=== PATIENT | female | born 1940 | race Caucasian/White ===

== ENCOUNTER 2023-08-12 09:14 | Outpatient (REF) | payer MEDICARE, SELFPAY ==
--- NOTE | ~2023-08-12 | MR_ITS ---
EXAMINATION: MR VENOGRAM HEAD WITHOUT AND WITH CONTRAST CLINICAL INFORMATION: Cerebral venous thrombosis. COMPARISON: No relevant prior imaging. TECHNIQUE: And MR venogram of the brain was performed without and with contrast including time resolved imaging. A total of 10 mL Gadavist was utilized for this examination. 3D images were processed on an independent workstation under concurrent supervision. Arterial stenoses are measured in accordance with NASCET criteria or similar method if applicable. FINDINGS: Internal cerebral veins, vein of Caleb, and straight sinus are patent. Appears sagittal sinus and torcula are patent. Transverse sinuses, sigmoid sinuses, and the visualized upper internal jugular veins are patent. No evidence of dural venous sinus thrombosis. Postcontrast images of the whole brain reveal no abnormal intracranial mass or enhancement. There is no intracranial mass effect or hydrocephalus. MR/MR venography head wo/w con IMPRESSION: Normal MR venogram of the head.
[2023-08-12] MEDS: gadobutroL 10 ML VIAL IVPUSH (10:24)
== END 2023-08-12 09:15 | disposition home or self-care (01) ==
LOC: HO.MRI 09:14
PROVIDERS: PCP Family Medicine; Visit Provider Psychiatry & Neurology Neurology
DX: I63.9 Cerebral infarction, unspecified (principal); G08 Intracranial and intraspinal phlebitis and thrombophlebitis
CPT/HCPCS: 70546; A9585

== ENCOUNTER 2023-12-10 14:01 | Outpatient (AMB) | payer MEDICARE, SELFPAY ==
--- NOTE | 2023-12-10 14:43 | A.OFFVIS_ITS ---
Vital Signs 12/10/23 14:46 Height 5 ft 3 in Weight 143 lb 6 oz BMI 25.4 BP 134/70 Blood Pressure Location Lt brachial Position Sitting Pulse 59 Pulse Source Pulse Oximeter Pulse Oximetry (%) 96 Oxygen Delivery Method Room Air Intake Visit Reasons: chronic cough Roll Out Manager Required: No Allergies No Known Allergies Allergy (Verified 12/10/23 14:43) HPI Comments Details: The patient is here for pulmonary evaluation. The patient is an 83 year woman with known history of high blood pressure presenting with a persistent nonproductive cough. The cough is moderate severity. It is not related to any particular time of the day. It is also not related to eating or any activity. Sometimes has the coughing spells that are moderate severity. She has a hard time stopping. Does not bring up any significant amount of phlegm. At times she may be bring up some clear mucus. Denies any blood. The patient did have a evaluation done and she was initially taken off her NOMAN inhibitor as she was on lisinopril. Subsequently after that she was given a fluticasone nasal spray which did not see any significant improvement. She also use antihistamines thinking that it was potentially allergy related. She came off the NOMAN- inhibitor and placed on an ARB. Although she has not seen any significant change in her cough. Also she has noticed that the ARB is not helping with the blood pressure as well as NOMAN inhibitor. She would like to potentially go back to the lisinopril if possible. As far as exposures she denies any fumes or toxins. She does not have any pets in the house. She has not been exposed to any visible mold. in her exam the patient does have some inflammation of the n alla turbinates suggesting of some degree of upper airway cough syndrome. As far as imaging studies I did review previous imaging studies she did have a [facility] a CT scan of the abdomen. It appeared that she had a small pleural- based pulmonary nodule measuring 6 mm in size back in 09/02/2023. It will be reasonable to further evaluate this. the patient will try benzonatate for cough relief. She will continue with the current therapy that she is receiving at this time and will have blood work including allergy testing. When she returns will talk about additional imaging studies as she may benefit from a CT scan of the chest to further address the pulmonary nodule And slight area of ground- glass opacity. [facility] Medical History (Updated 12/12/23 @ 22:15 by Huang Patel MD) Pulmonary nodule Chronic rhinitis Upper airway cough syndrome Allergies Chronic cough Social History (Updated 12/10/23 @ 14:46 by SANDI Pelaez) Patient Tobacco Use Status: Never used Tobacco Review of Systems Const Denies fever(s) Eyes Reports as per HPI ENT Reports no additional complaints, Reports nasal congestion and Reports nasal discharge Card Denies chest pain Resp Denies change in phlegm color, Denies chest congestion, Reports cough and Denies wheezing GI Reports no additional complaints Musc Reports no additional complaints Skin/Breast Denies rash Darin/Lymph Reports no additional complaints Aller/Immun Denies wheezing Physical Exam Vital Signs: Last Vital Signs Pulse 59 12/10/23 14:46 BP 134/70 12/10/23 14:46 Pulse Ox 96 12/10/23 14:46 Oxygen Delivery Method Room Air 12/10/23 14:46 BMI result Body Mass Index 25.4 Const General: comfortable HEENT General nose exam: Abnormal mucous membranes and turbinates present boggy and erythematous Neck Neck: Yes supple Chest Chest palpation & inspection: normal inspection of the chest Resp Effort & Inspection: normal respiratory effort Auscultation: clear to auscultation bilaterally Cardio Heart sounds: S1 normal heart sound present and S2 normal heart sound present Skin General skin exam: no rashes or lesions noted Extrem General: Yes no clubbing, cyanosis or edema Assessment & Plan Assessment & Plan (1) Chronic cough: Code(s): R05.3 - Chronic cough Category: Medical (2) Allergies: Code(s): T78.40XA - Allergy, unspecified, initial encounter Category: Medical Qualifiers: Encounter type: initial encounter Qualified Code(s): T78.40XA - Allergy, unspecified, initial encounter (3) Upper airway cough syndrome: Code(s): R05.8 - Other specified cough Category: Medical (4) Chronic rhinitis: Code(s): J31.0 - Chronic rhinitis Category: Medical (5) Pulmonary nodule: Code(s): R91.1 - Solitary pulmonary nodule Category: Medical Plan continue Fluticasone nasal spray nasal rinsing Anti histamine therapy as needed Bloodwork/allergy testing start benzonates as needed The patient would like to restart the NOMAN inhibitor for her BP because it worked better for her. Therefore, we will investigate further her cough and see if she can trial the NOMAN inhibitor again in the near future F/U 2 months Orders: Orders Complete Blood Count Auto Diff 12/10/23 R05.3 - Chronic cough Erythrocyte Sedimentation Rate 12/10/23 R05.3 - Chronic cough XR chest 2V 12/10/23 R05.3 - Chronic cough Immunoglobulin E 12/10/23 R05.3 - Chronic cough Resp Allergy Profile Region I 12/10/23 R05.3 - Chronic cough, R91.1 - Solitary pulmonary nodule, T78.40XA - Allergy, unspecified, initial encounter Medications: New benzonatate 200 mg PO BID 30 days PRN 60 caps 6RF cough Coding Level of Care Code New Pt Level 4 (10560) Diagnoses Chronic cough R05.3 Allergy, initial encounter T78.40XA Encounter type: initial encounter Upper airway cough syndrome R05.8 Chronic rhinitis J31.0 Pulmonary nodule R91.1 Time Spent (min) 35
[2023-12-10 14:46] VITALS: BP 134/70; PULSE 59; O2SAT 96; BMI 25.4
== END 2023-12-10 15:19 | disposition home or self-care (01) ==
PROVIDERS: PCP Family Medicine; Referring Provider Family Medicine; Visit Provider Hospitalist
DX: R05.3 Chronic cough (principal); T78.40XA Allergy, unspecified, initial encounter; R05.8 Other specified cough; J31.0 Chronic rhinitis; R91.1 Solitary pulmonary nodule
CPT/HCPCS: 99204

== ENCOUNTER 2023-12-10 14:01 | Outpatient (REF) | payer MEDICARE, SELFPAY ==
--- NOTE | ~2023-12-10 | XR_ITS ---
EXAMINATION: XR CHEST CLINICAL INFORMATION: Chronic cough. COMPARISON: None available. TECHNIQUE: 2 views of the chest were obtained. FINDINGS: Normal appearance of the cardiomediastinal silhouette. No focal consolidation, pleural effusion or pneumothorax. 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 Thoracic spondylosis. No acute osseous findings. XR/XR chest 2V IMPRESSION: No acute cardiopulmonary findings. Electronically signed by: America Ashby MD 12/11/2023 12:54 PM EDT
[2023-12-10 15:40] LABS: MANUAL DIFF FLAG NO
[2023-12-10 16:01] LABS: Basophils Absolute Auto 0.1 X10*3/uL (0.0-0.2); Eosinophils Absolute Auto 0.3 X10*3/uL (0.0-0.4); Eosinophils Percent Auto 3.1 % (0-4); Hematocrit 40.3 % (37.0-47.0); Hemoglobin 13.2 g/dl (12.0-16.0); Imm Gran Abs Auto 0.04 X10*3/uL (0.00-0.03); Imm Gran Pct Auto 0.5 % (0.0-0.4); Lymphocytes Percent Auto 24.2 % (20-40); Mean Corpuscular HGB Conc 32.8 g/dl (31.0-35.0); Mean Corpuscular Hemoglobin 28.8 pg (27.0-33.0); Mean Corpuscular Volume 87.8 fL (80.0-98.0); Mean Platelet Volume 10.7 fL (9.4-12.3); Monocytes Absolute Auto 0.7 X10*3/uL (0.1-1.2); Neutrophils Absolute Auto 5.3 x10*3/uL (2.0-8.3); Neutrophils Percent Auto 63.2 % (45-73); Platelet Count 236 X10*3/uL (160-400); Red Blood Count 4.59 X10*6/uL (4.20-5.50); Red Cell Distribution Width 13.5 % (11.0-16.0); White Blood Count 8.4 X10*3/uL (4.8-10.8)
[2023-12-10 17:22] LABS: Erythrocyte Sedimentation Rate 6 MM/HR (0-20)
[2023-12-15 19:27] LABS: Class Alternaria alternata 0; Class Aspergillus fumigatus 0; Class Bermuda Grass 0; Class Birch 0; Class Cat Dander 0; Class Cladosporium herbarum 0; Class Cockroach 0; Class Common Ragweed 0; Class Cottonwood 0; Class Derm. pterony 0; Class Dermatophagoides farinae 0; Class Dog Dander 0; Class Elm 0; Class Maple Box Elder 0; Class Mountain Cedar 0; Class Mouse Urine Protein 0; Class Mugwort 0; Class Oak 0; Class Penicillium crysogenum 0; Class Rough Pigweed 0; Class Sheep Sorrel 0; Class Sycamore 0; Class Timothy Grass 0; Class Walnut Tree 0; Class White Ash 0; Class White Mulberry 0; D001 IgE D pteronyssinus <0.10 kU/L; D002 - IgE D farinae <0.10 kU/L; E001 - IgE Cat Dander <0.10 kU/L; E005 - IgE Dog Dander <0.10 kU/L; E072-IgE Mouse Urine <0.10 kU/L; G002 IgE Bermuda Grass <0.10 kU/L; G006 - IgE Timothy Grass <0.10 kU/L; I006-IgE Cockroach, German <0.10 kU/L; Immunoglobulin E 19 kU/L (<OR=114); M001 IgE Penicillium chrysogen <0.10 kU/L; M002 - IgE Cladosporium herbar <0.10 kU/L; M003 - IgE Aspergillus fumigat <0.10 kU/L; M006 - IgE Alternaria alternat <0.10 kU/L; T001 IgE Maple/Box Elder <0.10 kU/L; T003 IgE Common Silver Birch <0.10 kU/L; T006 - IgE Cedar, Mountain <0.10 kU/L; T007 - IgE Oak, White <0.10 kU/L; T008 IgE Elm, American <0.10 kU/L; T010 - IgE Walnut <0.10 kU/L; T011 - IgE Maple Leaf Sycamore <0.10 kU/L; T014 - IgE Cottonwood <0.10 kU/L; T015 - IgE Ash, White <0.10 kU/L; T070 - IgE White Mulberry <0.10 kU/L; W001 - IgE Ragweed, Short <0.10 kU/L; W006 - IgE Mugwort <0.10 kU/L; W014 IgE Pigweed, Common <0.10 kU/L; W018 IgE Sheep Sorrel <0.10 kU/L
== END 2023-12-10 14:02 | disposition home or self-care (01) ==
LOC: HO.XRAY 14:01
PROVIDERS: PCP Family Medicine; Referring Provider Family Medicine; Visit Provider Hospitalist
DX: R05.3 Chronic cough (principal); R91.1 Solitary pulmonary nodule; T78.40XA Allergy, unspecified, initial encounter; J31.0 Chronic rhinitis
CPT/HCPCS: 36415; 71046; 82785; 85025; 85652; 86003; 99202

== ENCOUNTER 2024-01-19 08:20 | Outpatient (AMB) | payer MEDICARE, SELFPAY ==
--- NOTE | 2024-01-19 08:23 | MHC.OFFVIS ---
Vital Signs 01/19/24 08:26 Weight 145 lb 8.081 oz BP 124/64 Blood Pressure Location Lt brachial Position Sitting Pulse 68 Pulse Source Pulse Oximeter Pulse Oximetry (%) 98 Oxygen Delivery Method Room Air Intake Visit Reasons: Cough Allergies No Known Allergies Allergy (Verified 01/19/24 08:28) Medication List - Last Reconciled 01/19/24 by Cass Mckinnon, ABBI amlodipine 5 mg PO DAILY aspirin 81 mg PO DAILY atorvastatin 80 mg PO DAILY benzonatate 200 mg PO BID PRN 30 days diazepam 5 mg PO BID PRN duloxetine 20 mg PO DAILY losartan 25 mg PO DAILY meloxicam 7.5 mg PO BID pantoprazole 40 mg PO DAILY prednisolone acetate 1% drps ophthalmic (eye) HPI Comments Details: The patient is an 83 year woman with known history of high blood pressure presenting with a persistent nonproductive cough. The cough is moderate severity. It is not related to any particular time of the day. It is also not related to eating or any activity. Sometimes has the coughing spells that are moderate severity. She has a hard time stopping. Does not bring up any significant amount of phlegm. At times she may be bring up some clear mucus. Denies any blood. The patient did have a evaluation done and she was initially taken off her NOMAN inhibitor as she was on lisinopril. Subsequently after that she was given a fluticasone nasal spray which did not see any significant improvement. She also use antihistamines thinking that it was potentially allergy related. She came off the NOMAN-inhibitor and placed on an ARB. Although she has not seen any significant change in her cough. Also she has noticed that the ARB is not helping with the blood pressure as well as NOMAN inhibitor. She would like to potentially go back to the lisinopril if possible. As far as exposures she denies any fumes or toxins. She does not have any pets in the house. She has not been exposed to any visible mold. in her exam the patient does have some inflammation of the nasal turbinates suggesting of some degree of upper airway cough syndrome. As far as imaging studies I did review previous imaging studies she did have a [place] a CT scan of the abdomen. It appeared that she had a small pleural-based pulmonary nodule measuring 6 mm in size back in 09/02/2023. It will be reasonable to further evaluate this. the patient will try benzonatate for cough relief. She will continue with the current therapy that she is receiving at this time and will have blood work including allergy testing. When she returns will talk about additional imaging studies as she may benefit from a CT scan of the chest to further address the pulmonary nodule And slight area of ground-glass opacity. 01/19/2024 the patient is here for a pulmonary follow-up visit. The patient states that her cough is actually worse. Apparently she was exposed to sick contact and she started developing some chest congestion and chest tightness. She heard some wheezing. She went to an urgent care. They did swab her negative for any COVID. They give her a prescription for benzonatate although she already had 1. The B[place]on instability did not help. She did have an inhaler available and that did provide some relief as far as the rescue inhaler. She is feeling a little better still coughing though. On exam she does have some post exhalation coughing minimal wheezing but I think at this point will go ahead and treat her with some antibiotics and some Medrol to help her along with this chronic bronchitis issue. The patient will benefit from pulmonary function studies. [facility] Medical History (Updated 12/12/23 @ 22:15 by Huang Patel MD) Pulmonary nodule Chronic rhinitis Upper airway cough syndrome Allergies Chronic cough Social History (Updated 12/10/23 @ 14:46 by SANDI Pelaez) Patient Tobacco Use Status: Never used Tobacco Review of Systems Const Denies fever(s) Eyes Reports as per HPI ENT Reports no additional complaints, Reports nasal congestion and Reports nasal discharge Card Denies chest pain Resp Denies change in phlegm color, Reports chest congestion, Reports cough and Reports wheezing GI Reports no additional complaints Musc Reports no additional complaints Skin/Breast Denies rash Darin/Lymph Reports no additional complaints Aller/Immun Reports wheezing Physical Exam Vital Signs: Last Vital Signs Pulse 68 01/19/24 08:26 BP 124/64 01/19/24 08:26 Pulse Ox 98 01/19/24 08:26 Oxygen Delivery Method Room Air 01/19/24 08:26 Const General: comfortable HEENT General nose exam: Abnormal mucous membranes and turbinates present boggy and erythematous Neck Neck: Yes supple Chest Chest palpation & inspection: normal inspection of the chest Resp Effort & Inspection: normal respiratory effort and prolonged expiratory phase Auscultation: wheezes and diminished lung sounds Cardio Heart sounds: S1 normal heart sound present and S2 normal heart sound present Skin General skin exam: no rashes or lesions noted Extrem General: Yes no clubbing, cyanosis or edema Assessment & Plan Assessment & Plan (1) Chronic cough: Code(s): R05.3 - Chronic cough Category: Medical (2) Allergies: Code(s): T78.40XA - Allergy, unspecified, initial encounter Category: Medical Qualifiers: Encounter type: initial encounter Qualified Code(s): T78.40XA - Allergy, unspecified, initial encounter (3) Upper airway cough syndrome: Code(s): R05.8 - Other specified cough Category: Medical (4) Chronic rhinitis: Code(s): J31.0 - Chronic rhinitis Category: Medical (5) Pulmonary nodule: Code(s): R91.1 - Solitary pulmonary nodule Category: Medical Plan continue Fluticasone nasal spray nasal rinsing benzonates as needed start Doxycycline medrol pack RONNA as needed PFTs F/U 2 months Orders: Orders PFT pulmonary function test Today R05.3 - Chronic cough Medications: New methylprednisolone (Medrol (Jesus)) PO PER PKG DIR 6 days 21 ea 0RF doxycycline monohydrate 100 mg PO BID 14 days 28 tabs 0RF Coding Level of Care Code Est Pt Level 4 (88544) Diagnoses Chronic cough R05.3 Allergy, initial encounter T78.40XA Encounter type: initial encounter Upper airway cough syndrome R05.8 Chronic rhinitis J31.0 Pulmonary nodule R91.1 Time Spent (min) 17
[2024-01-19 08:26] VITALS: BP 124/64; PULSE 68; O2SAT 98
== END 2024-01-19 08:52 | disposition home or self-care (01) ==
PROVIDERS: PCP Family Medicine; Visit Provider Hospitalist
DX: R05.3 Chronic cough (principal); T78.40XA Allergy, unspecified, initial encounter; R05.8 Other specified cough; J31.0 Chronic rhinitis; R91.1 Solitary pulmonary nodule
CPT/HCPCS: 99214

== ENCOUNTER → 2024-01-19 08:20 | Outpatient (BNVA) | payer MEDICARE, SELFPAY | PROVIDERS: PCP Family Medicine; Visit Provider Hospitalist | DX: R05.3 Chronic cough (principal); R05.8 Other specified cough; J31.0 Chronic rhinitis; R91.1 Solitary pulmonary nodule; T78.40XA Allergy, unspecified, initial encounter; X58.XXXA Exposure to other specified factors, initial encounter; Y93.9 Activity, unspecified; Y92.9 Unspecified place or not applicable; Y99.9 Unspecified external cause status | CPT/HCPCS: 99212 ==

== ENCOUNTER 2024-03-02 08:57 | Outpatient (REF) | payer MEDICARE, SELFPAY ==
--- NOTE | 2024-03-02 09:05 | PFT_ITS ---
Flows: FEV1: 60 % of predicted at 1.26 L FVC: 80 % of predicted at 1.89 L FEV1/FVC: 66 % Bronchodilator response: Absent Volumes: Total lung capacity: 86 % of predicted at 4.03 L Residual volume: 96 % of predicted at 2.02 L Slow vital capacity: 80 % of predicted at 2.00 L Expiratory reserve volume: 31 % of predicted at 0.19 L Diffusion capacity: Normal Impression: Moderate obstructive ventilatory defect with no bronchodilator response. MTDD
--- OUTSIDE RECORDS SUMMARY | 2024-03-02 09:12 | XMS_ITS | Data Portability ---
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 I do think that it would be safe and reasonable to try a little bit of physical therapy and I have given her that prescription but I also explained that may be some limits to what she can accomplish She seems comfortable with this all questions answered and we will see her back on an as-needed basis Not available 01/21/2023 10:59:26 07/19/2023 07/19/2023 83-year-old fema le with acute on chronic left shoulder pain many years status post total shoulder replacement. She has mild, activity related pain. She would like to return to physical therapy. I gave her an updated prescription for this today. She will curtail aggravating activities until her acute symptoms settle out. She would like to follow-up on an as needed basis, advised we are happy to see her back should her symptoms change or worsen. Icing protocol reviewed. Questions invited and answered. Patient verbalizes understanding and agreement with plan. Patient was seen and evaluated by Jazlyn Yates PA-C in indirect conjunction with Documenting Provider: Campos Jose MD He/She agrees with history, physical examination, tests/diagnostic imaging, and treatment plan. PRIOR JK 01/21/23: I reviewed her history and physical exam and x-ray and is my impression that she status post left shoulder total shoulder replacement and doing quite well. I do think that it would be safe and reasonable to try a little bit of physical therapy and I have given her that prescription but I also explained that may be some limits to what she can accomplish She seems comfortable with this all questions answered and we will see her back on an as-needed basis Not available 07/19/2023 12:38:31 08/16/2023 08/16/2023 She has had some decompensation of her left shoulder function. Radiographically her prosthesis appears well-seated without any overt signs of loosening. I doubt she has infection. I think the most likely etiology is that she has developed a rotator cuff tear. I went over this with her. Recommend an MRI to confirm the diagnosis. We will do our best to get this with metal suppression. She understands she might ultimately end up needing revision surgery, converting this to a reverse shoulder arthroplasty. She is going to continue home exercise program for now, follow-up once the MRI is done. Greater than 30 minutes was spent with the encounter today, including face to face time with the patient, documentation, review of records/imaging if applicable, and coordination of care. PRIOR FRITZ: 83-year-old female with acute on chronic left shoulder pain many years status post total shoulder replacement. She has mild, activity related pain. She would like to return to physical therapy. I gave her an updated prescription for this today. She will curtail aggravating activities until her acute symptoms settle out. She would like to follow-up on an as needed basis, advised we are happy to see her back should her symptoms change or worsen. Юлия protocol reviewed. PRIOR JK 01/21/23: I reviewed her history and physical exam and x-ray and is my impression that she status post left shoulder total shoulder replacement and doing quite well. I do think that it would be safe and reasonable to try a little bit of physical therapy and I have given her that prescription but I also explained that may be some limits to what she can accomplish She seems comfortable with this all questions answered and we will see her back on an as-needed basis Not available 08/16/2023 12:57:32 Plan of Treatment Reminders Order Date Submit Date Provider Last Modified By Organization Details Last Modified Time Details Appointments None recorded. Lab None recorded. Referral None recorded. Procedures None recorded. Surgeries None recorded. Imaging XR, shoulder, 2 or more view 2022 023 [email or web address] [facility], [address], [place], [address], 3 11:00:01 XR, shoulder, 2 or more view 2023 024 [email or web address] [facility], [address], [address], [place], [address], 4 11:16:47 MRI, shoulder, w/o contrast 2023 024 [email or web address] Not available 15:57:37 Medication Orders None recorded. Patient TargetsNo targets recorded. Patient Instructions Encounter Date Encounter Id Patient Instructions Last Modified By Organization Details Last Modified Time 01/21/2023 [id number] X-rays 3 views left shoulder show status post total shoulder replacement components in good position Not available 01/21/2023 10:59:41 07/19/2023 [id number] views of the left shoulder were obtained today 07/19/2023 in the [place] office and compared to prior radiographs. Status post total shoulder replacement with components in stable alignment. No acute complication appreciated Not available 07/19/2023 12:37:22 08/16/2023 [id number] views of the left shoulder were obtained today 07/19/2023 in the [place] office and compared to prior radiographs. Status post total shoulder replacement with components in stable alignment. No acute complication appreciated Not available 08/16/2023 06:22:36 Reason for Referral None Reported. 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 Medical Equipment None Reported. Allergies No known drug allergies Medications Name Sig Start Date Stop Date Status Note LastModified by Organization Details LastModified Time amoxicillin 500 mg capsule TAKE 1 CAPSULE BY MOUTH THREE TIMES A DAY active Not Available Not Available No t Available atorvastati n 40 mg tablet TAKE 1 TABLET BY MOUTH EVERY DAY IN THE EVENING active Not Available Not Available No t Available atorvastati n 80 mg tablet Take 1 tablet every day by oral route. active Not Available Not Available No t Available doxycycline hyclate 100 mg capsule TAKE 1 CAPSULE BY MOUTH TWICE A DAY FOR 10 DAYS active Not Available Not Available No t Available atorvastati n 20 mg tablet TAKE 1 TABLET BY MOUTH EVERY DAY active Not Available Not Available No t Available meloxicam 15 mg tablet TAKE 1/2 (HALF) TABLET BY MOUTH TWICE DAILY 07/18 completed Not Available Not Available Not Available doxycycline hyclate 50 mg capsule TAKE 1 CAPSULE BY MOUTH TWICE A DAY active Not Available Not Available No t Available amlodipine 5 mg tablet Take 1 tablet every day by oral route. active Not Available Not Available No t Available aspirin 81 mg tablet,conrad yed release TAKE 1 TABLET BY MOUTH EVERY DAY FOR 90 DAYS active Not Available Not Available No t Available meloxicam 7.5 mg tablet TAKE 1 TABLET BY MOUTH TWICE A DAY active Not Available Not Available No t Available prednisolon e acetate 1 % eye drops,suspe nsion LOCATION: LEFT EYE. APPLY ONE DROP TO THE LEFT EYE ONCE DAILY. active Not Available Not Available No t Available pantoprazol e 40 mg tablet,conrad yed release TAKE 1 TABLET BY MOUTH EVERY DAY active Not Available Not Available No t Available aspirin 81 mg chewable tablet TAKE 1 TABLET BY MOUTH EVERY DAY active Not Available Not Available No t Available lisinopril 5 mg tablet Take 1 tablet every day by oral route. active Not Available Not Available No t Available diazepam 5 mg tablet TAKE 1 TABLET BY MOUTH TWICE A DAY NEEDED (PA DENIED) active Not Available Not Available No t Available neomycin 3.5 mg/g-polymy stephon B 10,000 unit/g-dexa meth 0.1 % eye oint APPLY TO THE UPPER LID OF THE RIGHT EYE AT BEDTIME ONLY FOR ONE WEEK active Not Available Not Available No t Available duloxetine 20 mg capsule,del ayed release TAKE 1 CAPSULE BY MOUTH EVERY DAY active Not Available Not Available No t Available GaviLyte-G 236 gram-22.74 gram-6.74 gram-5.86 gram oral solution TAKE 8 OUNCE BY MOUTH DIRECTED FOLLOW INSTRUCTI ONS PROVIDED TO YOU BY [facility]CTORS OFFICE 07/18 completed Not Available Not Available Not Available Eliquis 5 mg tablet TAKE 1 TABLET BY MOUTH TWICE A DAY FOR 90 DAYS active Not Available Not Available No t Available Vitals Date Recorded Body height Body mass index (BMI) Body weight Provider Name and Address Organization Details Last Updated DateTime 01/21/2023 152.4 cm 27.3 kg/m2 23349.93 g Maggie Lux [facility] 01/21/2023 10:38:44 Date Recorded Body height Body mass index (BMI) Body weight Provider Name and Address Organization Details Last Updated DateTime 07/19/2023 152.4 cm 27.3 kg/m2 56423.93 g Maci Michael [facility] 07/19/2023 10:39:18 Date Recorded Body height Body mass index (BMI) Body weight Provider Name and Address Organization Details Last Updated DateTime 08/16/2023 152.4 cm 27.1 kg/m2 96728.34 g Crystal Justin [facility] 08/16/2023 10:25:09 Social History Question Answer Notes LastModified by Organizat ion Details LastModified Time Tobacco Smoking Status Never Smoker Maggie Lux null, [facility] 01/21/2023 10:38:52 What Is Your Level Of Alcohol Consumption? Occasional [email or web address] Information not available 01/21/2023 Do You Use Any Illicit Or Recreational Drugs? No [email or web address] Information not available 01/21/2023 Do You Or Have You Ever Used Any Other Forms Of Tobacco Or Nicotine? No [email or web address] Information not available 01/21/2023 Sex: Unknown Functional Status None recorded. Mental Status None recorded. Family History Nothing Reported. Medical History No medical history recorded. Gynecological HistoryNo gynecological history recorded. Obstetrics History GPAL:G 0 P 0 0 0 0 Past Encounters Encounter ID Performer Location Encounter Start Date Encounter Closed Date Diagnosis/Indication Diagnosis SNOMED-CT Code Diagnosis ICD10 Code [id number] Fabien Block MD [place] [id number] 01/21/2023 10:07:33 01/21/2023 11:00:01 Pain of left shoulder joint 8649970133 9289650 M25.512 Degenerati ve joint disease of shoulder region 71359283 M19.019 [id number] [facility] [address] [place] [address] [place] [id number] 07/19/2023 10:09:00 07/19/2023 11:16:47 Pain of left shoulder region 4927229357 M25.512 Pain of le ft shoulder joint 7695878747 1519724 M25.512 Degenerati ve joint disease of shoulder region 53565621 M19.019 [id number] MD DESI Crane[address] [id number] 08/16/2023 10:18:15 08/16/2023 10:52:15 Pain of left shoulder joint 5612387570 2028746 M25.512 History of left shoulder arthroplasty 0672999928 028796 Z96.612 Health Concerns Section Related Observation LastModified by Organization Detai ls LastModified Time None Recorded Concern Status LastModified by Organization Details LastModified Time None Recorded Advance Directives Directive None Recorded Payers Encounter Date Sequence Insurance Name Policy Number Policy Jarquin Covered Member ID Jarquin Member ID Guarantor Name 01/21/2023 2 [place] [id number] Sallyann Resnic [id number] Jana Sharri Resnic 01/21/2023 1 [place] Sallyann Resnic [id number] Jana Sharri Resnic 07/19/2023 2 [place] [id number] Roselia Hernándeznic [id number] Jana Harrell Resnic 07/19/2023 1 [place] Roselia Hernándeznic [id number] 4 Jana Harrell Resnic 08/16/2023 2 [place] [id number] Roselia Hernándeznic [id number] 39 Jana Harrell Resnic 08/16/2023 1 [place] Roselia Hernándeznic [id number] 4 Jana Thomason Notes Date Note Type Note Provider Name and Address Organization Details Recorded Time 01/21/2023 text/html Jana is a 82 yr female who presents for evaluation of her left shoulder. She underwent a left shoulder replacement many years ago in [place] and has been doing extremely well. She did also have a right shoulder replacement in [place] in 1999 and and the right one feels fine. She is here today because her therapist suggested that she see me and have this evaluated prior to progressing with physical. Jana reports that she has some discomfort in her shoulder and it feels a little bit stiff but is not severe Fabien Block MD [address], [place], [address], [place] [facility] 01/21/2023 11:00:41 07/19/2023 text/html 83-year-old ryan gabriel presents to the urgent care today for evaluation of acute on chronic left shoulder pain status post left total shoulder many years ago. She reports a recent increase of pain when she returned to [employer] for the season. She reports she remains very active and goes to the gym regularly as well as takes exercise classes. She reports a couple of weeks ago following golf she felt a pop but this subsided pretty quickly.She denies radiation of pain beyond the elbow. Denies numbness or tingling. She has been able to continue with her activities and ADLs without much difficulty. Her pain is fleeting and intermittent, limited to specific movements. 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 She is currently anticoagulated with Eliquis. She notes she also did have an increase in multiple joint pains as she had to stop taking anti-inflammatories due to being on the Eliquis. She would like to return to physical therapy PRIOR K 01/21/23:Jana is a 82 yr female who presents for evaluation of her left shoulder. She underwent a left shoulder replacement many years ago in [place] and has been doing extremely well. She did also have a right shoulder replacement in [place] in 1999 and and the right one feels fine. She is here today because her therapist suggested that she see me and have this evaluated prior to progressing with physical. Jana reports that she has some discomfort in her shoulder and it feels a little bit stiff but is not severe JAZLYN YATES PA-C [address], [place], [address], [place] [facility] 07/19/2023 12:38:48 08/16/2023 text/html Patient returns for an evaluation of her left shoulder. No interval change in her symptoms since I saw her last. She has not been working with Crystal physical therapy because Crystal was concerned about the abnormal movement she has observed in the shoulder. Patient relates that she has been doing extremely well for generally 12 years following her shoulder replacement surgery. She desires to remain active and is frustrated by her current level of symptoms. PRIOR FRITZ:83-year-old female presents to the urgent care today for evaluation of acute on chronic left shoulder pain status post left total shoulder many years ago. She reports a recent increase of pain when she returned to [employer] for the season. She reports she remains very active and goes to the gym regularly as well as takes exercise classes. She reports a couple of weeks ago following golf she felt a pop but this subsided pretty quickly.She denies radiation of pain beyond the elbow. Denies numbness or tingling. She has been able to continue with her activities and ADLs without much difficulty. 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 She is currently anticoagulated with Eliquis. She notes she also did have an increase in multiple joint pains as she had to stop taking anti-inflammatories due to being on the Eliquis.She would like to return to physical therapyPRIOR JK 01/21/23:Jana is a 82 yr female who presents for evaluation of her left shoulder. She underwent a left shoulder replacement many years ago in [place] and has been doing extremely well. She did also have a right shoulder replacement in [place] in 1999 and and the right one feels fine. She is here today because her therapist suggested that she see me and have this evaluated prior to progressing with physical. Jana reports that she has some discomfort in her shoulder and it feels a little bit stiff but is not severe Campos Jose MD [address], [place], [address], [place] [facility] 08/16/2023 12:58:09 OBGyn Episode No OBEpisode recorded.
[2024-03-02 10:36] VITALS: PULSE 61; O2SAT 98
== END 2024-03-02 08:58 | disposition home or self-care (01) ==
LOC: HO.RESP 08:57
PROVIDERS: PCP Family Medicine; Visit Provider Hospitalist
DX: R05.3 Chronic cough (principal)
CPT/HCPCS: 94010; 94640; 94727; 94729

== ENCOUNTER → 2024-03-02 09:05 | Outpatient (BNV) | payer MEDICARE, SELFPAY | PROVIDERS: PCP Family Medicine; Visit Provider Internal Medicine Pulmonary Disease | DX: R05.3 Chronic cough (principal) | CPT/HCPCS: 94060; 94727; 94729 ==

== ENCOUNTER 2024-03-27 09:42 | Outpatient (AMB) | payer MEDICARE, SELFPAY ==
--- NOTE | 2024-03-27 09:47 | A.OFFVIS_ITS ---
Vital Signs 03/27/24 09:49 Height 5 ft 3 in Weight 145 lb 8.081 oz BMI 25.8 BP 126/68 Blood Pressure Location Lt brachial Position Sitting Pulse 63 Pulse Source Pulse Oximeter Pulse Oximetry (%) 98 Oxygen Delivery Method Room Air Intake Visit Reasons: Cough/PFT Follow Up Allergies No Known Allergies Allergy (Verified 03/27/24 09:53) HPI Comments Details: The patient is an 84 year woman with known history of high blood pressure presenting with a persistent nonproductive cough. The cough is moderate severity. It is not related to any particular time of the day. It is also not related to eating or any activity. Sometimes has the coughing spells that are moderate severity. She has a hard time stopping. Does not bring up any significant amount of phlegm. At times she may be bring up some clear mucus. Denies any blood. The patient did have a evaluation done and she was initially taken off her NOMAN inhibitor as she was on lisinopril. Subsequently after that she was given a fluticasone nasal spray which did not see any significant improvement. She also use antihistamines thinking that it was potentially allergy related. She came off the NOMAN-inhibitor and placed on an ARB. Although she has not seen any significant change in her cough. Also she has noticed that the ARB is not helping with the blood pressure as well as NOMAN inhibitor. She would like to potentially go back to the lisinopril if possible. As far as exposures she denies any fumes or toxins. She does not have any pets in the [facility]. She has not been exposed to any visible mold. in her exam the patient does have some inflammation of the nasal turbinates suggesting of some degree of upper airway cough syndrome. As far as imaging studies I did review previous imaging studies she did have a [facility] a CT scan of the abdomen. It appeared that she had a small pleural-based pulmonary nodule measuring 6 mm in size back in 09/02/2023. It will be reasonable to further evaluate this. the patient will try benzonatate for cough relief. She will continue with the current therapy that she is receiving at this time and will have blood work including allergy testing. When she returns will talk about additional imaging studies as she may benefit from a CT scan of the chest to further address the pulmonary nodule And slight area of ground-glass opacity. 01/19/2024 the patient is here for a pulmonary follow-up visit. The patient states that her cough is actually worse. Apparently she was exposed to sick contact and she started developing some chest congestion and chest tightness. She heard some wheezing. She went to an urgent care. They did swab her negative for any COVID. They give her a prescription for benzonatate although she already had 1. The Bentson instability did not help. She did have an inhaler available and that did provide some relief as far as the rescue inhaler. She is feeling a little better still coughing though. On exam she does have some post exhalation coughing minimal wheezing but I think at this point will go ahead and treat her with some antibiotics and some Medrol to help her along with this chronic bronchitis issue. The patient will benefit from pulmonary function studies. 03/27/2024 the patient is here for a pulmonary follow-up visit. Overall the patient has been doing well. Although she is still coughing. She had switched of the NOMAN inhibitor to an ARB but she did not like the adverse effects of the ARB so she went back on the NOMAN-inhibitor. She did not see any improvement of her cough coming off the NOAMN inhibitor. She did undergo pulmonary function studies which I personally reviewed. She appears to have a partial reversible obstruction. 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 She was also coughing in the room and she did expectorate some phlegm suggesting some component of chronic bronchitis as well. Therefore go ahead and start her on a maintenance inhaler. I will send Trelegy to the pharmacy. I did teach her how to use it. She is going to try for a month at least and see if there is any relief of her cough. Otherwise the patient is doing well. Will follow-up in 3 months [facility] Medical History (Updated 03/27/24 @ 20:21 by Huang Patel MD) Cough variant asthma Pulmonary nodule Chronic rhinitis Upper airway cough syndrome Allergies Chronic cough Social History Patient Tobacco Use Status: Never used Tobacco Review of Systems Const Denies fever(s) Eyes Reports as per HPI ENT Reports no additional complaints, Reports nasal congestion and Reports nasal discharge Card Denies chest pain Resp Denies change in phlegm color, Reports chest congestion, Reports cough and Reports wheezing GI Reports no additional complaints Musc Reports no additional complaints Skin/Breast Denies rash Darin/Lymph Reports no additional complaints Aller/Immun Reports wheezing Physical Exam Vital Signs: Last Vital Signs Pulse 63 03/27/24 09:49 BP 126/68 03/27/24 09:49 Pulse Ox 98 03/27/24 09:49 Oxygen Delivery Method Room Air 03/27/24 09:49 BMI result Body Mass Index 25.8 Const General: comfortable HEENT General nose exam: Abnormal mucous membranes and turbinates present boggy and erythematous Neck Neck: Yes supple Chest Chest palpation & inspection: normal inspection of the chest Resp Effort & Inspection: normal respiratory effort Auscultation: diminished lung sounds Cardio Heart sounds: S1 normal heart sound present and S2 normal heart sound present Skin General skin exam: no rashes or lesions noted Extrem General: Yes no clubbing, cyanosis or edema Assessment & Plan Assessment & Plan (1) Chronic cough: Code(s): R05.3 - Chronic cough Category: Medical (2) Allergies: Code(s): T78.40XA - Allergy, unspecified, initial encounter Category: Medical Qualifiers: Encounter type: initial encounter Qualified Code(s): T78.40XA - Allergy, unspecified, initial encounter (3) Upper airway cough syndrome: Code(s): R05.8 - Other specified cough Category: Medical (4) Chronic rhinitis: Code(s): J31.0 - Chronic rhinitis Category: Medical (5) Pulmonary nodule: Code(s): R91.1 - Solitary pulmonary nodule Category: Medical (6) Cough variant asthma: Code(s): J45.991 - Cough variant asthma Category: Medical Plan continue Fluticasone nasal spray nasal rinsing benzonates as needed start Trelegy daily RONNA as needed F/U 3-4 months Medications: New gctxwswyopj-cvlfnidkn-vmdqdbze 100-62.5-25 mcg (Trelegy Ellipta) 1 inh inhalation DAILY 60 ea 11RF 30 days J44.9 - Chronic obstructive pulmonary disease, unspecified Discontinued methylprednisolone (Medrol (Jesus)) Discontinued Reason: Doctor's Order PO PER PKG DIR 6 days 21 ea 0RF Coding Level of Care Code Est Pt Level 4 (43503) Complex EM visit Add On G2211 Diagnoses Chronic cough R05.3 Allergy, initial encounter T78.40XA Encounter type: initial encounter Upper airway cough syndrome R05.8 Chronic rhinitis J31.0 Pulmonary nodule R91.1 Cough variant asthma J45.991 Time Spent (min) 17
[2024-03-27 09:49] VITALS: BP 126/68; PULSE 63; O2SAT 98; BMI 25.8
== END 2024-03-27 10:26 | disposition home or self-care (01) ==
PROVIDERS: PCP Family Medicine; Visit Provider Hospitalist
DX: R05.3 Chronic cough (principal); T78.40XA Allergy, unspecified, initial encounter; R05.8 Other specified cough; J31.0 Chronic rhinitis; R91.1 Solitary pulmonary nodule; J45.991 Cough variant asthma
CPT/HCPCS: 99214; G2211

== ENCOUNTER → 2024-03-27 09:42 | Outpatient (BNVA) | payer MEDICARE, SELFPAY | PROVIDERS: PCP Family Medicine; Visit Provider Hospitalist | DX: J45.991 Cough variant asthma (principal); R05.3 Chronic cough; J31.0 Chronic rhinitis; R91.1 Solitary pulmonary nodule; R05.8 Other specified cough; T78.40XA Allergy, unspecified, initial encounter | CPT/HCPCS: 99212 ==

== ENCOUNTER 2024-07-25 11:16 | Outpatient (AMB) | payer MEDICARE, SELFPAY ==
[2024-07-25 11:18] VITALS: BP 140/60; PULSE 71; O2SAT 95; BMI 25.6
--- NOTE | 2024-07-25 11:18 | A.OFFVIS_ITS ---
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 The cough is moderate severity. It is not related to any particular time of the day. It is also not related to eating or any activity. Sometimes has the coughing spells that are moderate severity. She has a hard time stopping. Does not bring up any significant amount of phlegm. At times she may be bring up some clear mucus. Denies any blood. The patient did have a evaluation done and she was initially taken off her NOMAN inhibitor as she was on lisinopril. Subsequently after that she was given a fluticasone nasal spray which did not see any significant improvement. She also use antihistamines thinking that it was potentially allergy related. She came off the NOMAN-inhibitor and placed on an ARB. Although she has not seen any significant change in her cough. Also she has noticed that the ARB is not helping with the blood pressure as well as NOMAN inhibitor. She would like to potentially go back to the lisinopril if possible. As far as exposures she denies any fumes or toxins. She does not have any pets in the house. She has not been exposed to any visible mold. in her exam the patient does have some inflammation of the nasal turbinates suggesting of some degree of upper airway cough syndrome. As far as imaging studies I did review previous imaging studies she did have a [facility] a CT scan of the abdomen. It appeared that she had a small pleural-based pulmonary nodule measuring 6 mm in size back in 09/02/2023. It will be reasonable to further evaluate this. the patient will try benzonatate for cough relief. She will continue with the current therapy that she is receiving at this time and will have blood work including allergy testing. When she returns will talk about additional imaging studies as she may benefit from a CT scan of the chest to further address the pulmonary nodule And slight area of ground-glass opacity. 01/19/2024 the patient is here for a pulmonary follow-up visit. The patient states that her cough is actually worse. Apparently she was exposed to sick contact and she started developing some chest congestion and chest tightness. She heard some wheezing. She went to an urgent care. They did swab her negative for any COVID. They give her a prescription for benzonatate although she already had 1. The Bentson instability did not help. She did have an inhaler available and that did provide some relief as far as the rescue inhaler. She is feeling a little better still coughing though. On exam she does have some post exhalation coughing minimal wheezing but I think at this point will go ahead and treat her with some antibiotics and some Medrol to help her along with this chronic bronchitis issue. The patient will benefit from pulmonary function studies. 03/27/2024 the patient is here for a pulmonary follow-up visit. Overall the patient has been doing well. Although she is still coughing. She had switched of the NOMAN inhibitor to an ARB but she did not like the adverse effects of the ARB so she went back on the NOMAN-inhibitor. She did not see any improvement of her cough coming off the NOMAN inhibitor. She did undergo pulmonary function studies which I personally reviewed. She appears to have a partial reversible obstruction. 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 She was also coughing in the room and she did expectorate some phlegm suggesting some component of chronic bronchitis as well. Therefore go ahead and start her on a maintenance inhaler. I will send Micah to the pharmacy. I did teach her how to use it. She is going to try for a month at least and see if there is any relief of her cough. Otherwise the patient is doing well. Will follow-up in 3 months 07/25/2024 the patient is here for pulmonary follow-up visit. Overall she is doing better. He has stopped certain medications that she feels that were contributing to her cough. She still cause but not as much. Her cough is typically dry hacky cough. Fjxj-uz-[id number] severity. She also had some shortness of breath with activity. She does have a rescue inhaler. I did provide her with a peak flow meter and she did tried in the office she was coronal on 270 improved slightly to about 290 after her bronchodilator. Although not clear how reproducible the numbers are. She is going to continue to work with. In the meantime, back in August [address] she [address] scan of the abdomen showing a questionable area of pulmonary nodule pleural-based. I did review the images and they appear to be more scarring. She has had a CT scan of the chest prior to the without any parenchymal disease or nodular densities or scarring. Therefore go ahead and repeat a CAT scan at this time. She is also looking to relocating to the [facility] closer to her family. That is perfectly fine. She can either have the CAT scan here or she can wait to get situated have the CAT scan there. [facility] Medical History (Updated 03/27/24 @ 20:21 by Huang Patel MD) Cough variant asthma Pulmonary nodule Chronic rhinitis Upper airway cough syndrome Allergies Chronic cough Social History Patient Tobacco Use Status: Never used Tobacco Review of Systems Const Denies chills, Denies fatigue, Denies fever(s), Denies weight gain and Denies weight loss Eyes Reports as per HPI ENT Denies dizziness Card Denies chest pain, Denies leg edema, Denies lightheadedness, Denies palpitations, Denies dyspnea on exertion, Denies orthopnea and Denies other Resp Reports cough, Denies dyspnea on exertion and Denies wheezing GI Denies hematochezia and Denies change in stool character Musc Denies abnormal gait, Denies muscle weakness, Denies numbness, Denies radiating pain into limb and Denies tingling Skin/Breast Denies rash Neuro Denies abnormal gait, Denies dizziness, Denies numbness and Denies tingling Endo Denies fatigue and Denies palpitations Darin/Lymph Reports no additional complaints Aller/Immun Denies wheezing Physical Exam Vital Signs: Last Vital Signs Pulse 71 07/25/24 11:18 BP 140/60 H 07/25/24 11:18 Pulse Ox 95 07/25/24 11:18 Oxygen Delivery Method Room Air 07/25/24 11:18 BMI result Body Mass Index 25.6 Const General: comfortable HEENT General nose exam: Abnormal mucous membranes and turbinates present boggy and erythematous Neck Neck: Yes supple Chest Chest palpation & inspection: normal inspection of the chest Resp Effort & Inspection: normal respiratory effort Auscultation: clear to auscultation bilaterally Cardio Heart sounds: S1 normal heart sound present and S2 normal heart sound present Skin General skin exam: no rashes or lesions noted Extrem General: Yes no clubbing, cyanosis or edema Assessment & Plan Assessment & Plan (1) Chronic cough: Code(s): R05.3 - Chronic cough Category: Medical (2) Allergies: Code(s): T78.40XA - Allergy, unspecified, initial encounter Category: Medical Qualifiers: Encounter type: initial encounter Qualified Code(s): T78.40XA - Allergy, unspecified, initial encounter (3) Upper airway cough syndrome: Code(s): R05.8 - Other specified cough Category: Medical (4) Chronic rhinitis: Code(s): J31.0 - Chronic rhinitis Category: Medical (5) Pulmonary nodule: Code(s): R91.1 - Solitary pulmonary nodule Category: Medical (6) Cough variant asthma: Code(s): J45.991 - Cough variant asthma Category: Medical Plan start Peak flow continue Fluticasone nasal spray nasal rinsing benzonates as needed RONNA as needed CT chest to f/u with lower lobe subcentemeter nodule F/U as needed Orders: Orders CT chest wo IV con Today R91.1 - Solitary pulmonary nodule Medications: New albuterol sulfate 90 mcg/actuation (Ventolin HFA) 2 puffs inhalation QID PRN 18 grams 11RF shortness of breath or wheezing 30 days Coding Level of Care Code Est Pt Level 4 (15876) Complex EM visit Add On G2211 Diagnoses Chronic cough R05.3 Allergy, initial encounter T78.40XA Encounter type: initial encounter Upper airway cough syndrome R05.8 Chronic rhinitis J31.0 Pulmonary nodule R91.1 Cough variant asthma J45.991 Time Spent (min) 18
--- OUTSIDE RECORDS SUMMARY | 2024-07-25 12:44 | XMS_ITS | Encounter Summary ---
Author Organization [facility] Address [facility] [place] [address] Care Team Providers Care Charm Filter Operator Helper Name Role Phone Madisyn Elliott MD Primary Care Provider Madisyn Benoit MD Unavailable Unavailable Godwin Griffith MD Unavailable Unavailable Adrienne Miller NP Unavailable [phone] Godwin Griffith MD Unavailable Unavailable Alfonso Pedersen MD Unavailable [phone] Encounter Details Date Type Department Care Team Description 05/10/2019 Transfer Records Medical Records [address] [place] [id number] Abstract, Provider Social History Tobacco Use Types Packs/Day Years Used Date Smoking Tobacco: Former Cigarettes Q uit: 1963 Smokeless Tobacco: Never Comments:only smoked 1-2 cig s a day Alcohol Use Standard Drinks/Week Comments Yes 0 (1 standard drink = 0.6 oz pur e alcohol) Alcohol Habits Answer Date Recorded How often do you have a drink containing alcohol ? 2-3 times a week 02/08/2019 How many drinks containing a lcohol do you have on a typical day when you are drinking? 1 or 2 02/08/2019 How often do you have six or more drinks on one occasion? Not asked Sex Assigned at Date Recorded Not on file Job Start Date Occupation Industry Not on file Not on file Not on file documented as of this encounter Plan of Treatment Not on file documented as of this encounter Visit Diagnoses Not on filedocumented in this encounter Care Teams Charm Filter Operator Helper Relationship Specialty Start Date End Date Madisyn Elliott MD PCP - General Internal Medicine 11/17/18 Madisyn Elliott MD 01/12/18 02/10/21 Godwin Griffith MD Specialist Cardiovascular Disease 05/24/20 Adrienne Miller NP Nurse Practitioner Cardiology 03/13/20 Godwin Griffith MD Material Combiner Cardiovascular Disease 03/13/20 04/18/23 Alfonso Pedersen MD [address] [place] [address] [place] [address] Specialist Cardiovascular Disease 08/24/23 documented as of this encounter
--- OUTSIDE RECORDS SUMMARY | 2024-07-25 12:44 | XMS_ITS | Encounter Summary ---
Author Organization [facility] Address [facility] [place] [address] Care Team Providers Care Java Developer Architect Name Role Phone Madisyn Elliott MD Primary Care Provider Madisyn Benoit MD Unavailable Unavailable Godwin Griffith MD Unavailable Unavailable Adrienne Miller NP Unavailable [phone] Godwin Griffith MD Unavailable Unavailable Alfonso Pedersen MD Unavailable [phone] Encounter Details Date Type Department Care Team Description 01/02/2020 SCAN Medical Records [address] [place] [id number] Godwin Griffith MD Social History Tobacco Use Types Packs/Day Years [...] on file documented as of this encounter Procedures Procedure Name Priority Date/Time Associated Diagnosis Comments OUTSIDE ECHO Routine 01/02/2020 documented in this encounter Results * OUTSIDE ECHO (01/02/2020) Provider Abstract CARDIOLOGY documented in this encounter Visit Diagnoses Not on filedocumented in this encounter Care Teams Java Developer Architect Relationship Specialty Start Date End Date Madisyn Elliott MD PCP - General Internal Medicine 11/17/18 Madisyn Elliott MD 01/12/18 02/10/21 Godwin Griffith MD Specialist Cardiovascular Disease 05/24/20 Adrienne Miller NP Nurse Practitioner Cardiology 03/13/20 Godwin Griffith MD Cooler Worker Cardiovascular Disease 03/13/20 04/18/23 Alfonso Pedersen MD [address] [place] [address] [place] [address] Specialist Cardiovascular Disease 08/24/23 documented as of this encounter
--- OUTSIDE RECORDS SUMMARY | 2024-07-25 12:45 | XMS_ITS | Data Portability ---
Author Organization [place] [facility] [place] Address [address] [place] [address] Care Team Providers Care Law Firm Consultant Name Role Phone YUSEF ALBERTO Referring Provider [phone] YUSEF ALBERTO Primary Care Provider Assessment Encounter [...] change or worsen. Юлия protocol reviewed. PRIOR DEL 01/21/23: I reviewed her history and physical [...] an as-needed basis Not available 08/16/2023 12:57:32 05/09/2024 05/09/2024 Persistent left shoulder pain with decompensation of her shoulder function status post total shoulder arthroplasty. I suspect she has a rotator cuff tear. No obvious x-ray evidence of loosening of her components. We talked about treatment options moving forward. In an effort to gain a bit more information we are going to send her for a left shoulder CT scan with metal suppression protocol. Hopefully we can get some idea of the rotator cuff as well as eliminate obvious loosening. I agree, unclear if she would benefit from a revision surgery converting her anatomic arthroplasty to a reverse shoulder. She is not anxious to pursue surgery. In the interim she can continue with therapy and I gave her an updated prescription. Greater than 20 minutes was spent with the encounter today, including face to face time with the patient, documentation, review of records/imaging if applicable, and coordination of care. PRIOR: She has had some decompensation of her [...] now, follow-up once the MRI is done. PRIOR FRITZ: 83-year-old female with acute on [...] change or worsen. Юлия protocol reviewed. PRIOR DEL 01/21/23: I reviewed her history and physical [...] back on an as-needed basis Not available 05/09/2024 12:11:36 06/06/2024 06/06/2024 I had a lengthy discussion with her today. The CT scan raises some concern for potential loosening of the glenoid component. She still having sensations of instability in the shoulder which may be related to potential loosening or rotator cuff incompetence. At present she has no interest in anything surgical. On not sure I have much else to offer her. She does feel she is gaining benefit from ongoing therapy and therefore she may continue at her discretion. Possible that her symptoms could worsen over time. If the glenoid component is truly loose it is possible it could loosen further over time, potentially increasing further bony erosion and glenoid bone loss making revision surgery more difficult. Once again, she states that she has no interest in pursuing any kind of surgery and does not want anesthesia. She is going to be moving in August to [facility] to an independent living facility. Follow-up for now as needed. Greater than 30 minutes was spent with the encounter today, including face to face time with the patient, documentation, review of records/imaging if applicable, and coordination of care. PRIOR: Persistent left shoulder pain with decompensation of her shoulder function status post total shoulder arthroplasty. I suspect she has a rotator cuff tear. No obvious x-ray evidence of loosening of her components. We talked about treatment options moving forward. In an effort to gain a bit more information we are going to send her for a left shoulder CT scan with metal suppression protocol. Hopefully we can get some idea of the rotator cuff as well as eliminate obvious loosening. I agree, unclear if she would benefit from a revision surgery converting her anatomic arthroplasty to a reverse shoulder. She is not anxious to pursue surgery. In the interim she can continue with therapy and I gave her an updated prescription. PRIOR: She has had some decompensation of her [...] now, follow-up once the MRI is done. PRIOR FRITZ: 83-year-old female with acute on [...] see her back on an as-needed basis [email or web address] Not available 06/06/2024 12:46:36 Plan of Treatment Reminders Order Date Submit Date Provider Last Modified By Organization Details Last Modified Time Details Appointments None recorded. Lab None recorded. Referral None recorded. Procedures None recorded. Surgeries None recorded. Imaging CT, shoulder, w/o contrast 2024 025 [email or web address] Not available 5 22:29:52 MRI, shoulder, w/o contrast 2023 024 Not available 4 15:57:37 XR, shoulder, 2 or more view 2023 024 [email or web address] [facility], [address], [address], [place], [address], 4 11:16:47 XR, shoulder, 2 or more view 2022 023 [email or web address] [facility], [address], [address], [place], [address], 3 11:00:01 Medication Orders None recorded. Patient TargetsNo targets recorded. Patient Instructions Encounter Date Encounter Id Patient Instructions Last Modified By Organization Details Last Modified Time 01/21/2023 [id number] X-rays 3 views left shoulder show status post total shoulder replacement components in good position Not available 01/21/2023 10:59:41 07/19/2023 [id number] views of the left shoulder were obtained today 07/19/2023 in the Oral office and compared to prior radiographs. Status post total shoulder replacement with components in stable alignment. No acute complication appreciated Not available 07/19/2023 12:37:22 08/16/2023 [id number] 3 views of the left shoulder were obtained today 07/19/2023 in the Oral office and compared to prior radiographs. Status post total shoulder replacement with components in stable alignment. No acute complication appreciated Not available 08/16/2023 06:22:36 05/09/2024 [id number] 3 views of the left shoulder were obtained today 07/19/2023 in the Oral office and compared to prior radiographs. Status post total shoulder replacement with components in stable alignment. No acute complication appreciated Not available 05/08/2024 19:34:34 06/06/2024 [id number] views of the left shoulder were obtained today 07/19/2023 in the Oral office and compared to prior radiographs. Status post total shoulder replacement with components in stable alignment. No acute complication appreciated Not available 06/05/2024 12:51:50 Reason for Referral None Reported. Results Created Date Observation Date Name Description Value Unit Range Abnormal Flag Note LastModifiedBy Organization Detail LastModifiedTime 05/26/1905/25/2024 CT, shoul damon, w/o contr ast No observ ation record ed. Not Available 2024 06:07:23 Result Notes None recorded. Problems Name Problem SNOMED Code Status Onset Date Resolution Date Notes Provider Name and Address Organization Details Recorded Time Osteoarthri tis of shoulder region 43716267 Active [address], [place], [address], [place] [facility] 3 11:00:28 Pain of left shoulder joint 8966020632406 9109 Active [address], [place], [address], [place] [facility] 4 11:02:28 Pain of left shoulder region Active 2023 Campos Jose MD [address], [place], [address], [place] [facility] 4 06:22:36 Problem Notes None recorded. Procedures Surgical History None recorded. Imaging Results Imaging Date Name Status LastModified by Organiz ation Details LastModified Time 05/25/2024 CT, shoulder, w/o contrast completed Information not available 05/26/2024 06:07:23 Procedure Notes None recorded. Medical Equipment None Reported. Allergies No known drug allergies Medications Name Sig Start Date Stop Date Status Note LastModified by Organization Details LastModified Time amoxicillin 500 mg capsule TAKE 1 CAPSULE BY MOUTH THREE TIMES A DAY 06/05 completed Not Available Not Available Not Available atorvastati n 40 mg tablet TAKE 1 TABLET BY MOUTH EVERY DAY IN THE EVENING 05/09 completed Not Available Not Available Not Available atorvastati n 80 mg tablet TAKE 1 TABLET BY MOUTH EVERY DAY active Not Available Not Available No t Available doxycycline hyclate 100 mg capsule TAKE 1 CAPSULE BY MOUTH TWICE A DAY FOR 10 DAYS 06/05 completed Not Available Not Available Not Available atorvastati n 20 mg tablet TAKE 1 TABLET BY MOUTH EVERY DAY 05/09 completed Not Available Not Available Not Available benzonatate 200 mg capsule TAKE 1 CAPSULE BY MOUTH 3 TIMES A DAY FOR 7 DAYS NEEDED FOR COUGH 06/06 completed Not Available Not Available Not Available meloxicam 15 mg tablet TAKE 1/2 (HALF) TABLET BY MOUTH TWICE DAILY 07/18 completed Not Available Not Available Not Available doxycycline hyclate 50 mg capsule TAKE 1 CAPSULE BY MOUTH TWICE A DAY 05/09 completed Not Available Not Available Not Available amlodipine 5 mg tablet TAKE 1 TABLET BY MOUTH 1 TIME EACH DAY. active Not Available Not Available No t Available aspirin 81 mg tablet,conrad yed release TAKE 1 TABLET BY MOUTH EVERY DAY FOR 90 DAYS 05/09 completed Not Available Not Available Not Available doxycycline monohydrate 100 mg tablet TAKE 1 TABLET BY MOUTH TWICE A DAY X 14 DAYS 06/06 completed Not Available Not Available Not Available meloxicam 7.5 mg tablet TAKE 1 TABLET BY MOUTH TWICE A DAY active Not Available Not Available No t Available prednisolon e acetate 1 % eye drops,suspe nsion APPLY ONE DROP TO THE LEFT EYE ONCE DAILY active Not Available Not Available No t Available pantoprazol e 40 mg tablet,conrad yed release TAKE 1 TABLET BY MOUTH EVERY DAY active Not Available Not Available No t Available losartan 25 mg tablet TAKE 1 TABLET BY MOUTH EVERY DAY 06/05 completed Not Available Not Available Not Available betamethaso ne, augmented 0.05 % topical ointment APPLY TO AFFECTED AREA BID FOR UP TO 2 WEEKS, FOLLOWED BY 1 WEEK OFF. REPEAT NEEDED. active Not Available Not Available No t Available aspirin 81 mg chewable tablet TAKE 1 TABLET BY MOUTH EVERY DAY active Not Available Not Available No t Available lisinopril 5 mg tablet TAKE 1 TABLET BY MOUTH 1 TIME EACH DAY. 06/06 completed Not Available Not Available Not Available methylpredn isolone 4 mg tablets in a dose pack TAKE 6 TABLETS ON DAY 1 DIRECTED ON PACKAGE AND DECREASE BY 1 TAB EACH DAY FOR A TOTAL OF 6 DAYS 06/06 completed Not Available Not Available Not Available albuterol sulfate HFA 90 mcg/actuati on aerosol inhaler INHALE 2 PUFFS EVERY 6 HOURS NEEDED FOR WHEEZING/ SHORTNESS OF BREATH 06/05 completed Not Available Not Available Not Available diazepam 5 mg tablet TAKE 1 TABLET BY MOUTH TWICE A DAY NEEDED FOR 45 DAYS active Not Available Not Available No t Available neomycin 3.5 mg/g-polymy stephon B 10,000 unit/g-dexa meth 0.1 % eye oint APPLY TO THE UPPER LID OF THE RIGHT EYE AT BEDTIME ONLY FOR ONE WEEK 05/09 completed Not Available Not Available Not Available duloxetine 20 mg capsule,del ayed release [...] MOUTH TWICE A DAY FOR 90 DAYS 05/09 completed Not Available Not Available Not Available Trelegy Ellipta 100 mcg-62.5 mcg-25 mcg powder for inhalation INHALE 1 PUFF BY MOUTH ONCE DAILY 06/05 completed Not Available Not Available Not Available Vitals Date Recorded Body height Body mass index (BMI) Body weight Provider Name and Address Organization Details Last Updated DateTime 01/21/2023 152.4 cm 27.3 kg/m2 86656.93 g Maggie Lux [place] [facility] 01/21/2023 10:38:44 Date Recorded Body height Body mass index (BMI) Body weight Provider Name and Address Organization Details Last Updated DateTime 07/19/2023 152.4 cm 27.3 kg/m2 13060.93 g Maci Rodriguez [place] [facility] 07/19/2023 10:39:18 Date Recorded Body height Body mass index (BMI) Body weight Provider Name and Address Organization Details Last Updated DateTime 08/16/2023 152.4 cm 27.1 kg/m2 75468.34 g Crystal Anderson [facility] 08/16/2023 10:25:09 Date Recorded Body height Body mass index (BMI) Body weight Provider Name and Address Organization Details Last Updated DateTime 06/06/2024 152.4 cm 27 kg/m2 27144.75 g Crystal Anderson [facility] 06/06/2024 11:20:45 Social History None recorded. Functional Status Question Answer Note LastModified by Organizat ion Details LastModified Time Do you use any illicit or recreational drugs? No [email or web address] Information not available 01/21/2023 Do you or have you ever used any other forms of tobacco or nicotine? No [email or web address] Information not available 01/21/2023 What is your level of alcohol consumption? Occasional [email or web address] Information not available 01/21/2023 Mental Status None recorded. Family History Nothing Reported. Medical History No medical history recorded. Gynecological HistoryNo gynecological history recorded. Obstetrics History GPAL:G 0 P 0 0 0 0 Past Encounters Encounter ID Performer Location Encounter Start Date Encounter Closed Date Diagnosis/Indication Diagnosis SNOMED-CT Code Diagnosis ICD10 Code Diagnosis Note [id number] Fabien Block MD [address] [place] [address] 01/21/2023 10:07:33 01/21/2023 11:00:01 Pain of left shoulder joint [id number] 7319361 M25.512 Osteoarthr itis of shoulder region 61467827 M19.019 [id number] JAZLYN YATES PA-C [facility] [address] [place] [address] [place], [place] [address] 07/19/2023 10:09:00 07/19/2023 11:16:47 Pain of left shoulder region 3989162881 M25.512 Additional diagnosis detail: Left shoulder pain, unspecifie d chronicity Pain of le ft shoulder joint 3172073451 3713072 M25.512 Osteoarthr itis of shoulder region 64239050 M19.019 [id number] Campos Jose MD [place] [address] 08/16/2023 10:18:15 08/16/2023 10:52:15 Pain of left shoulder joint 8694792263 5683095 M25.512 History of left shoulder arthroplasty 2394923831 456043 Z96.612 Additional diagnosis detail: Status post replacemen t of left shoulder joint [id number] Campos Jose MD [place] [id number] 05/09/2024 10:36:20 05/09/2024 11:35:04 Pain of left shoulder joint 5806899008 8857472 M25.512 History of left shoulder arthroplasty 9462581284 399609 Z96.612 Additional diagnosis detail: Status post replacemen t of left shoulder joint [id number] Campos Jose MD [place] [id number] 06/06/2024 10:39:54 06/06/2024 11:43:17 Pain of left shoulder region 5177053863 M25.512 Pain of le ft shoulder joint 3776246074 6636569 M25.512 History of left shoulder arthroplasty 7198928964 748196 Z96.612 Additional diagnosis detail: Status post replacemen t of left shoulder joint Health Concerns Section Related Observation LastModified by Organization Detai ls LastModified Time None Recorded Concern Status LastModified by Organization Details LastModified Time None Recorded Advance Directives Directive None Recorded Payers Encounter Date Sequence Insurance Name Policy Number Policy Jarquin Covered Member ID Jarquin Member ID Guarantor Name 01/21/2023 1 [place]ARE [place] Sallyann Resnic [id number] Jana Sharri Resnic 01/21/2023 2 [place] [id number] Sallyann Resnic [id number] Jana Sharri Resnic 07/19/2023 1 [place] Sallyann Resnic [id number] Jana Sharri Resnic 07/19/2023 2 [place] [id number] Sallyann Resnic [id number] Jana Sharri Resnic 08/16/2023 1 [place] Sallyann Resnic [id number] Jana Sharri Resnic 08/16/2023 2 [place] [id number] Sallyann Resnic [id number] Jana Sharri Resnic 05/09/2024 1 [place] Sallyann Resnic [id number] 4 Jana Sharri Resnic 05/09/2024 2 [place] [id number] Sallyann Resnic [id number] Jana Sharri Resnic 06/06/2024 1 [place] Sallyann Resnic [id number] 4 Jana Sharri Resnic 06/06/2024 2 [place] [id number] Sallyann Resnic [id number] Jana Sharri Resnic Notes Date Note Type Note Provider Name and Address Organization Details Recorded Time 01/21/2023 text/html Jana is a 82 yr female who presents for evaluation of her left shoulder. She underwent a left shoulder replacement many years ago in [place] and has been doing extremely well. She did also have a right shoulder replacement in [place] in 1999 and and the right one feels fine. She is here today because her therapist suggested that she see me and have this evaluated prior to progressing with physical. Jana reports that she has some discomfort in her shoulder and it feels a little bit stiff but is not severe Fabien Block MD [address], [place], [address], [place] [facility] 01/21/2023 11:00:41 07/19/2023 text/html 83-year-old ryan gabriel presents to the urgent care today for evaluation of acute on chronic left shoulder pain status post left total shoulder many years ago. She reports a recent increase of pain when she returned to [place] for the season. She reports she remains [...] like to return to physical therapy PRIOR JK 01/21/23:Jana is a 82 yr female who presents for evaluation of her left shoulder. She underwent a left shoulder replacement many years ago in [place] and has been doing extremely well. She did also have a right shoulder replacement in [place] in 1999 and and the right one feels fine. She is here today because her therapist suggested that she see me and have this evaluated prior to progressing with physical. Jana reports that she has some discomfort in her shoulder and it feels a little bit stiff but is not severe JAZLYN YATES PA-C [address], [place], [address], [place] [facility] 07/19/2023 12:38:48 08/16/2023 text/html Patient returns [...] increase of pain when she returned to [place] the season. She reports she remains [...] would like to return to physical therapyPRIOR 01/21/23:Jana is a 82 yr female who presents for evaluation of her left shoulder. She underwent a left shoulder replacement many years ago in [place] and has been doing extremely well. She did also have a right shoulder replacement in [place] in 1999 and and the right one feels fine. She is here today because her therapist suggested that she see me and have this evaluated prior to progressing with physical. Jana reports that she has some discomfort in her shoulder and it feels a little bit stiff but is not severe Campos Jose MD [address], [place], [address], [place] [facility] 08/16/2023 12:58:09 05/09/2024 text/html Patient returns for an evaluation of her left shoulder. She has had a lengthy hiatus since I saw her. Perhaps 6 months ago she saw a surgeon in [place] at [facility] who told her she should avoid a revision as the results would be difficult to predict. Since that time she has been continuing to work out. She intermittently stops in to see Crystal in physical therapy for taping. She is requesting a new physical therapy prescription today. Pain is highly variable depending on position. With certain movements she feels like the shoulder shifts and she gets sharp pain that can go up to a 10/10. She denies any new injuries. PRIOR:Patient returns for an evaluation of her left [...] is frustrated by her current level of symptoms.PRIOR FRITZ:83-year-old female presents to the urgent care today for evaluation of acute on chronic left shoulder pain status post left total shoulder many years ago. She reports a recent increase of pain when she returned to [place] for the season. She reports she remains [...] would like to return to physical therapyPRIOR 01/21/23:Jana is a 82 yr female who presents for evaluation of her left shoulder. She underwent a left shoulder replacement many years ago in [place] and has been doing extremely well. She did also have a right shoulder replacement in [place] in 1999 and and the right one feels fine. She is here today because her therapist suggested that she see me and have this evaluated prior to progressing with physical. Jana reports that she has some discomfort in her shoulder and it feels a little bit stiff but is not severe Campos Jose MD [address], [place], [address], [place] [facility] 05/09/2024 12:11:44 06/06/2024 text/html Patient returns for ongoing evaluation of her left shoulder. No significant interval change in her symptoms. She intermittently sees Crystal in physical therapy. She feels therapy has been helpful with regards to strengthening. She still has a clunking sensation particularly if she actively reaches out away from her body or overhead. She did have her CT scan done and brings that in today for review. PRIOR:Patient returns for an evaluation of her left shoulder. She has had a lengthy hiatus since I saw her. Perhaps 6 months ago she saw a surgeon in [place] at [facility] who told her she should avoid a revision as the results would be difficult to predict. Since that time she has been continuing to work out. She intermittently stops in to see Crystal in physical therapy for taping. She is requesting a new physical therapy prescription today. Pain is highly variable depending on position. With certain movements she feels like the shoulder shifts and she gets sharp pain that can go up to a 10/10. She denies any new injuries.PRIOR:Suhail sanchez returns for an evaluation of her left [...] is frustrated by her current level of symptoms.PRIOR FRITZ:83-year-old female presents to the urgent care today for evaluation of acute on chronic left shoulder pain status post left total shoulder many years ago. She reports a recent increase of pain when she returned to [place] for the season. She reports she remains [...] would like to return to physical therapyPRIOR DEL 01/21/23:Jana is a 82 yr female who presents for evaluation of her left shoulder. She underwent a left shoulder replacement many years ago in [place] and has been doing extremely well. She did also have a right shoulder replacement in [place] in 1999 and and the right one feels fine. She is here today because her therapist suggested that she see me and have this evaluated prior to progressing with physical. Jana reports that she has some discomfort in her shoulder and it feels a little bit stiff but is not severe Campos Jose MD [address], [place], [address], [place] [facility] 06/06/2024 12:48:13 OBGyn Episode No OBEpisode recorded.
--- OUTSIDE RECORDS SUMMARY | 2024-07-25 12:45 | XMS_ITS | Encounter Summary ---
Author Organization [facility] Address [address] [place] [address] Care Team Providers Care Frame Welder Cargo Utility Trailers Name Role Phone Andrew Marie MD Primary Care Provider Jasson Lutz MD Primary Care Provider [phone] Madisyn Elliott MD Primary Care Provider Madisyn Benoit MD Unavailable Unavailable Godwin Griffith MD Unavailable Unavailable Adrienne Miller NP Unavailable [phone] Godwin Griffith MD Unavailable Unavailable Alfonso Pedersen MD Unavailable [phone] Reason for Visit * Reason Onset Date Comments Faxed Refill 01/19/2018 Encounter Details Date Type Department Care Team Description 01/19/2018 Refill Adult [facility] [address] [place] [address] Andrew Marie MD Faxed Refill Social History Tobacco Use Types Packs/Day Years Used Date Smoking Tobacco: Never Assessed Alcohol Habits Answer Date Recorded How often [...] on file documented as of this encounter Miscellaneous Notes * Telephone Encounter - Roseanne Mead L.P.N. - 01/19/2018 12:16 PM EST Please send ambien and diazepam to pharmacy forwarded to you Thanks neonatologist done * Telephone Encounter - Debra Samuels - 01/19/2018 8:18 AM EST Patient would like script to be: E-PRESCRIBED/FAXED TO PHARMACY When was the patients last office visit in Adult Medicine?: When was the last time the patient saw their PCP? Does patient have an upcoming appointment? (THE MEDICATION IS NOT ON THE MED LIST AND IS IDENTIFIED BELOW): {MED LIST:11684) Med name: Zolpidem Tartrate Dosage: 10mg # of tablets: 30 Local pharmacy with request for 30 -day supply Instructions: 1 tablet by mouth at bedtime Did you check the pharmacy information above?: YES Patients current [place]: [place] / [place] / Product Type: MEDICAREFEE-FOR-SERVICE Med name: Diazepam Dosage: 5mg # of tablets: 60 Local pharmacy with request for 30 -day supply Instructions: 1 tablet by mouth 2 times daily as needed Did you check the pharmacy information above?: YES Patients current insurance carrier: [place] / [place] / Product Type: MEDICAREFEE-FOR-SERVICE documented in this encounter Plan of Treatment Not on file documented as of this encounter Visit Diagnoses Not on filedocumented in this encounter Care Teams Frame Welder Cargo Utility Trailers Relationship Specialty Start Date End Date Andrew Marie MD PCP - General Internal Medicine 01/12/18 02/28/18 Jasson Santiago MD [address] [place] [address] PCP - General Internal Medicine 03/01/18 11/16/18 Madisyn Elliott MD [address] [place] [address] PCP - General Internal Medicine 11/17/18 Madisyn Elliott MD [address] [place] [address] 01/12/18 02/10/21 Godwin Griffith MD [address] [place] [address] Specialist Cardiovascular Disease 05/24/20 02/10/21 Adrienne Miller NP [address] [place] [address] Nurse Practitioner Cardiology 03/13/20 Godwin Griffith MD [address] [place] [address] Zmt Operator Cardiovascular Disease 03/13/20 04/18/23 Alfonso Pedersen MD [address] [place] [address] [place] [address] Specialist Cardiovascular Disease 08/24/23 documented as of this encounter
--- OUTSIDE RECORDS SUMMARY | 2024-07-25 12:45 | XMS_ITS | Encounter Summary ---
Author Organization [facility] Address [facility] [place] [address] Care Team Providers Care Body Worker Name Role Phone Madisyn Elliott MD Primary Care Provider Adrienne Sorensen NP Unavailable [phone] Godwin Griffith MD Unavailable Unavailable Alfonso Pedersen MD Unavailable [phone] Encounter Details Date Type Department Care Team Description 12/03/2022 Creative Art Director Report Medical Records [address] [place] [id number] Saritha Gamboa Social History Tobacco Use Types Packs/Day Years Used Date Smoking Tobacco: Former Cigarettes Q uit: 1963 Smokeless Tobacco: Never Comments:only smoked 1-2 cig s a day Alcohol Use Standard Drinks/Week Comments Yes 0 (1 standard drink = 0.6 oz pur e alcohol) wine - 4 glasses per wk Alcohol Habits Answer Date Recorded How often [...] on filedocumented in this encounter Care Teams Body Worker Relationship Specialty Start Date End Date Madisyn Elliott MD PCP - General Internal Medicine 11/17/18 Adrienne Miller NP Nurse Practitioner Cardiology 03/13/20 Godwin Griffith MD Agile Qa Tester Cardiovascular Disease 03/13/20 04/18/23 Alfonso Pedersen MD [address] [place] [address] [place] [address] Specialist Cardiovascular Disease 08/24/23 documented as of this encounter
--- OUTSIDE RECORDS SUMMARY | 2024-07-25 12:45 | XMS_ITS | Encounter Summary ---
Author Organization [facility] Address [address] [place] [address] Care Team Providers Care Literacy Education Professor Name Role Phone Madisyn Elliott MD Primary Care Provider Adrienne Sorensen NP Unavailable [phone] Godwin Griffith MD Unavailable Unavailable Alfonso Pedersen MD Unavailable [phone] Reason for Visit * Reason Onset Date Comments other 03/09/2023 Encounter Details Date Type Department Care Team Description 03/09/2023 Telephone Cardio [facility] [address] [place] [address] Godwin Griffith MD other Social History Tobacco Use Types Packs/Day Years [...] encounter Miscellaneous Notes * Telephone Encounter - Godwin Griffith MD - 03/11/2023 4:25 PM EST Please let her know that I do not have any recommendation for neurologist in the area. There is been a significant turnover in regards to the ones at [facility]. There are a few new ones at [facility] that she may be able to get in to see. Mike Loredo MD is one at [place] that I often use as well * Telephone Encounter - Danna Whalen - 03/10/2023 1:34 PM EST Patient calling stating she would like Dr Griffith recommendation on a neurologist, as she had a stroke and will need a nuerologist now, She is asking if Dr Griffith is able to, please call her. She is still currently at [facility] but is asking for a call back from him to go over everything with him to get his recommendations. [phone] * Telephone Encounter - Lucero Dillard - 03/09/2023 1:17 PM EST Patient is going to be being admitted to [facility] for a mild stroke. They are looking to prescribe her a blood pressure medication and she wants to know which one Dr Griffith would advise her to get. Please advise. documented in this encounter Plan of Treatment Not on file documented as of this encounter Visit Diagnoses Not on filedocumented in this encounter Care Teams Literacy Education Professor Relationship Specialty Start Date End Date Madisyn Elliott MD PCP - General Internal Medicine 11/17/18 Adrienne Miller NP Nurse Practitioner Cardiology 03/13/20 Godwin Griffith MD Architectural Project Manager Cardiovascular Disease 03/13/20 04/18/23 Alfonso Pedersen MD [address] [place] [address] [place] [address] Specialist Cardiovascular Disease 08/24/23 documented as of this encounter
--- OUTSIDE RECORDS SUMMARY | 2024-07-25 12:45 | XMS_ITS | Encounter Summary ---
Author Organization [facility] Address [facility] [place] [address] Care Team Providers Care Sample Distributor Name Role Phone Madisyn Elliott MD Primary Care Provider Madisyn Benoit MD Unavailable Unavailable Godwin Griffith MD Unavailable Unavailable Adrienne Miller NP Unavailable [phone] Godwin Griffith MD Unavailable Unavailable Alfonso Pedersen MD Unavailable [phone] Encounter Details Date Type Department Care Team Description 01/31/2019 Release of Information Medical Records [address] [place] [address] Abstract, Provider Social History Tobacco Use Types Packs/Day Years Used Date Smoking Tobacco: Former Smokeless Tobacco: Never Alcohol Use Standard Drinks/Week Comments Yes 0 (1 standard drink = 0.6 oz pur e alcohol) social Alcohol Habits Answer Date Recorded How often [...] on filedocumented in this encounter Care Teams Sample Distributor Relationship Specialty Start Date End Date Madisyn Elliott MD PCP - General Internal Medicine 11/17/18 Madisyn Elliott MD 01/12/18 02/10/21 Godwin Griffith MD Specialist Cardiovascular Disease 05/24/20 Adrienne Miller NP Nurse Practitioner Cardiology 03/13/20 Godwin Griffith MD Coding Compliance Specialist Cardiovascular Disease 03/13/20 04/18/23 Alfonso Pedersen MD [address] [place] [address] [place] [address] Specialist Cardiovascular Disease 08/24/23 documented as of this encounter
--- OUTSIDE RECORDS SUMMARY | 2024-07-25 12:45 | XMS_ITS | Encounter Summary ---
Author Organization [facility] Address [facility] [place] [address] Care Team Providers Care Electrical Cad Technician Name Role Phone Madisyn Elliott MD Primary Care Provider Adrienne Sorensen NP Unavailable Godwin Griffith MD Unavailable Unavailable Alfonso Pedersen MD Unavailable [phone] Encounter Details Date Type Department Care Team Description 12/09/2022 SCAN Medical Records [address] [place] [id number] Abstract, Provider Social History Tobacco Use Types [...] on filedocumented in this encounter Care Teams Electrical Cad Technician Relationship Specialty Start Date End Date Madisyn Elliott MD PCP - General Internal Medicine 11/17/18 Adrienne Miller NP Nurse Practitioner Cardiology 03/13/20 Godwin Griffith MD Coldfusion Cardiovascular Disease 03/13/20 04/18/23 Alfonso Pedersen MD [address] [place] [address] [place] [address] Specialist Cardiovascular Disease 08/24/23 documented as of this encounter
--- OUTSIDE RECORDS SUMMARY | 2024-07-25 12:45 | XMS_ITS | Encounter Summary ---
Author Organization [facility] Address [facility] [place] [address] Care Team Providers Care Cook Barbecue Name Role Phone Madisyn Elliott MD Primary Care Provider Adrienne Sorensen NP Unavailable [phone] Godwin Griffith MD Unavailable Unavailable Alfonso Pedersen MD Unavailable Encounter Details Date Type Department Care Team Description 12/07/2022 SCAN Medical Records [address] [place] [id number] Abstract, Provider Social History Tobacco Use Types [...] Name Priority Date/Time Associated Diagnosis Comments OUTSIDE LAB Routine 12/07/2022 documented in this encounter Results * OUTSIDE LAB (12/07/2022) Provider Default LAB documented in this encounter Visit Diagnoses Not on filedocumented in this encounter Care Teams Cook Barbecue Relationship Specialty Start Date End Date Madisyn Elliott MD PCP - General Internal Medicine 11/17/18 Adrienne Miller NP Nurse Practitioner Cardiology 03/13/20 Godwin Griffith MD Associate Programmer Analyst Cardiovascular Disease 03/13/20 04/18/23 Alfonso Pedersen MD [address] [place] [address] [place] [address] Specialist Cardiovascular Disease 08/24/23 documented as of this encounter
--- OUTSIDE RECORDS SUMMARY | 2024-07-25 12:45 | XMS_ITS | Encounter Summary ---
Author Organization [facility] Address [facility] [place] [address] Care Team Providers Care Help Desk Supervisor Name Role Phone Madisyn Elliott MD Primary Care Provider Adrienne Sorensen NP Unavailable [phone] Godwin Griffith MD Unavailable Unavailable Alfonso Pedersen MD Unavailable [phone] Encounter Details Date Type Department Care Team Description 02/16/2023 SCAN Medical Records [address] [place] [address] [facility] Social History Tobacco Use Types Packs/Day Years [...] on filedocumented in this encounter Care Teams Help Desk Supervisor Relationship Specialty Start Date End Date Madisyn Elliott MD PCP - General Internal Medicine 11/17/18 Adrienne Miller NP Nurse Practitioner Cardiology 03/13/20 Godwin Griffith MD General Farmer Cardiovascular Disease 03/13/20 04/18/23 Alfonso Pedersen MD [address] [place] [address] [place] [address] Specialist Cardiovascular Disease 08/24/23 documented as of this encounter
--- OUTSIDE RECORDS SUMMARY | 2024-07-25 12:45 | XMS_ITS | Encounter Summary ---
Author Organization [facility] Address [facility] [place] [address] Care Team Providers Care Biological Inspector Name Role Phone Madisyn Elliott MD Primary Care Provider Madisyn Benoit MD Unavailable Unavailable Godwin Griffith MD Unavailable Unavailable Adrienne Miller NP Unavailable [phone] Godwin Griffith MD Unavailable Unavailable Alfonso Pedersen MD Unavailable Encounter Details Date Type Department Care Team Description 12/23/2018 Transfer Records Medical Records [address] [place] [address] Abstract, Provider Social History Tobacco Use Types Packs/Day Years Used Date Smoking Tobacco: Never Smokeless Tobacco: Never Alcohol Use Standard Drinks/Week [...] on filedocumented in this encounter Care Teams Biological Inspector Relationship Specialty Start Date End Date Madisyn Elliott MD PCP - General Internal Medicine 11/17/18 Madisyn Elliott MD 01/12/18 02/10/21 Godwin Griffith MD Specialist Cardiovascular Disease 05/24/20 Adrienne Miller NP Nurse Practitioner Cardiology 03/13/20 Godwin Griffith MD Fire Claims Adjuster Cardiovascular Disease 03/13/20 04/18/23 Alfonso Pedersen MD [address] [place] [address] [place] [address] Specialist Cardiovascular Disease 08/24/23 documented as of this encounter
--- OUTSIDE RECORDS SUMMARY | 2024-07-25 12:45 | XMS_ITS | Encounter Summary ---
Author Organization [facility] Address [facility] [place] [address] Care Team Providers Care Building Carpenter Helper Name Role Phone Jasson Santiago MD Primary Care Provider [phone] Madisyn Elliott MD Primary Care Provider Madisyn Benoit MD Unavailable Unavailable Godwin Griffith MD Unavailable Unavailable Adrienne Miller NP Unavailable [phone] Godwin Griffith MD Unavailable Unavailable Alfonso Pedersen MD Unavailable [phone] Encounter Details Date Type Department Care Team Description 04/18/2018 Release of Information Medical Records [address] [place] [address] Abstract, Provider Social History Tobacco Use Types [...] on filedocumented in this encounter Care Teams Building Carpenter Helper Relationship Specialty Start Date End Date Jasson Santiago MD [address] [place] [address] PCP - General Internal Medicine 03/01/18 11/16/18 Madisyn Elliott MD [address] [place] [address] PCP - General Internal Medicine 11/17/18 Madisyn Elliott MD [address] [place] [address] 01/12/18 02/10/21 Godwin Griffith MD [address] [place] [address] Specialist Cardiovascular Disease 05/24/20 02/10/21 Adrienne Miller NP [address] [place] [address] Nurse Practitioner Cardiology 03/13/20 Godwin Griffith MD [address] [place] [address] Mannequin Mold Maker Cardiovascular Disease 03/13/20 04/18/23 Alfonso Pedersen MD [address] [place] [address] [place] [address] Specialist Cardiovascular Disease 08/24/23 documented as of this encounter
--- OUTSIDE RECORDS SUMMARY | 2024-07-25 12:45 | XMS_ITS | Encounter Summary ---
Author Organization [facility] Address [address] [place] [address] Care Team Providers Care Pit Laborer Name Role Phone Madisyn Elliott MD Primary Care Provider Madisyn Benoit MD Unavailable Unavailable Godwin Griffith MD Unavailable Unavailable Adrienne Miller NP Unavailable [phone] Godwin Griffith MD Unavailable Unavailable Alfonso Pedersen MD Unavailable Reason for Visit * Reason Comments E-prescribe Rx Request Encounter Details Date Type Department Care Team Description 02/04/2019 Refill Adult [facility] - [place] 98 [address] [place] [address] Madisyn Elliott MD E-prescribe Rx Request Social History Tobacco Use Types Packs/Day Years [...] encounter Miscellaneous Notes * Telephone Encounter - Ella Thomson C.M.A. - 02/06/2019 12:39 PM EST Diazepam 5 mgs MYKEL: 11/17/2018 NOV: 05/17/2019 MassPat done LRF: 12/15/2018 No results found for: URBENZO, UROPIATES, URBARBITUATE, PAINAMPHETAM, URAMPHETAMIN, PAINCOCAINE, URCOCAINE, PAINCANNABIN, URMARIJUANA * Telephone Encounter - Kerry Weiss - 02/06/2019 10:02 AM EST Patient would like script to be: E-PRESCRIBED/FAXED TO PHARMACY WHEN WAS THE PATIENT'S LAST APPOINTMENT IN ADULT MEDICINE? 11/17/18 WHEN WAS THE LAST TIME THE PATIENT SAW THEIR PCP? Same as above Does patient have an upcoming appointment? Yes 05/17/2019 (THE MEDICATION REQUESTED IS ON THE MED LIST ABOVE) All of the medications requested were on the CURRENT MEDS list Did you check the Pharmacy information above?: YES Patient wants: 30 -day supply Is this a mail order prescription request ? NO If the refill is from a FAXED refill request what is the RX # listed on the fax? N/A Patients current insurance carrier is: [place] / [place] / Product Type: MEDICARE [id number] documented in this encounter Plan of Treatment Not on file documented as of this encounter Visit Diagnoses Not on filedocumented in this encounter Care Teams Pit Laborer Relationship Specialty Start Date End Date Madisyn Elliott MD PCP - General Internal Medicine 11/17/18 Madisyn Elliott MD 01/12/18 02/10/21 Godwin Griffith MD Specialist Cardiovascular Disease 05/24/20 Adrienne Miller NP Nurse Practitioner Cardiology 03/13/20 Godwin Griffith MD Veneer Repairer Machine Cardiovascular Disease 03/13/20 04/18/23 Alfonso Pedersen MD [address] [place] [address] [place] [address] Specialist Cardiovascular Disease 08/24/23 documented as of this encounter
--- OUTSIDE RECORDS SUMMARY | 2024-07-25 12:45 | XMS_ITS | Encounter Summary ---
Author Organization [facility] Address [address] [place] [address] Care Team Providers Care Dross Skimmer Name Role Phone Madisyn Elliott MD Primary Care Provider Adrienne Sorensen NP Unavailable [phone] Godwin Griffith MD Unavailable Unavailable Alfonso Pedersen MD Unavailable [phone] Reason for Visit * Reason Onset Date Comments TEST RESULTS 09/02/2022 echo Encounter Details Date Type Department Care Team Description 09/02/2022 Telephone Cardio [facility] [address] [place] [address] Godwin Griffith MD TEST RESULTS (echo) Social History Tobacco Use Types Packs/Day Years [...] file Not on file Not on file COVID-19 Exposure Response Date Recorded In the last 10 days, have yo u been in contact with someone who was confirmed or suspected to have Coronavirus/COVID-19? No / Unsure 08/28/2022 1:21 PM EDT documented as of this encounter Miscellaneous Notes * Telephone Encounter - Lauren Ramirez - 09/03/2022 3:52 PM EDT Faxed 08/28/[address] Elliott. Fax confirmed sent 3 pages on 09/03/22 @ 3:44pm. * Telephone Encounter - Sharonda Howard R.N. - 09/03/2022 1:30 PM EDT Pt called this afternoon. Relayed message from LOCO [place]. Pt further asked how to sign up for [employer] for which personal email was confirmed and instructions sent . Pt also requested for recent ECHO results to be sent to her PCP Dr Elliott- can you please do so. Thank you. * Telephone Encounter - Adrienne Miller NP - 09/03/2022 1:20 PM EDT Please let the patient know that I have reviewed the results of her echocardiogram. Her cardiac function is normal and there have been no significant changes since her last echocardiogram. Overall this is a stable echocardiogram with no concerning findings. If she has any additional questions please let her know that Dr. Griffith is on vacation and will return next week. * Telephone Encounter - Sharonda Howard R.N. - 09/03/2022 10:23 AM EDT ECHO results now available in pt's chart. Please advise. * Telephone Encounter - Sharonda Howard R.N. - 09/02/2022 3:31 PM EDT ECHO results read in prosolv. Can you please scan them into pt's chart? * Telephone Encounter - Alice Nazario - 09/02/2022 3:22 PM EDT Patient called, she would like to review the result of her echocardiogram from last Wednesday08/28/22 when available. Please call her back at [phone]. She will be leaving next week for 1 month. documented in this encounter Plan of Treatment Not on file documented as of this encounter Visit Diagnoses Not on filedocumented in this encounter Care Teams Dross Skimmer Relationship Specialty Start Date End Date Madisyn Elliott MD PCP - General Internal Medicine 11/17/18 Adrienne Miller NP Nurse Practitioner Cardiology 03/13/20 Godwin Griffith MD Cosmetic Dentist Cardiovascular Disease 03/13/20 04/18/23 Alfonso Pedersen MD [address] [place] [address] [place] [address] Specialist Cardiovascular Disease 08/24/23 documented as of this encounter
--- OUTSIDE RECORDS SUMMARY | 2024-07-25 12:45 | XMS_ITS | Encounter Summary ---
Author Organization [facility] Address [facility] [place] [address] Care Team Providers Care Bottom Turner Name Role Phone Madisyn Elliott MD Primary Care Provider Adrienne Sorensen NP Unavailable [phone] Godwin Griffith MD Unavailable Unavailable Alfonso Pedersen MD Unavailable [phone] Encounter Details Date Type Department Care Team Description 01/29/2023 SCAN Medical Records [address] [place] [address] Saritha Gamboa Social History Tobacco Use Types [...] Date/Time Associated Diagnosis Comments OUTSIDE LAB Routine 01/29/2023 documented in this encounter Results * OUTSIDE LAB (01/29/2023) Provider Default LAB documented in this encounter Visit Diagnoses Not on filedocumented in this encounter Care Teams Bottom Turner Relationship Specialty Start Date End Date Madisyn Elliott MD PCP - General Internal Medicine 11/17/18 Adrienne Miller NP Nurse Practitioner Cardiology 03/13/20 Godwin Griffith MD Legal Arbitrator Cardiovascular Disease 03/13/20 04/18/23 Alfonso Pedersen MD [address] [place] [address] [place] [address] Specialist Cardiovascular Disease 08/24/23 documented as of this encounter
--- OUTSIDE RECORDS SUMMARY | 2024-07-25 12:45 | XMS_ITS | Encounter Summary ---
Author Organization [facility] Address [facility] [place] [address] Care Team Providers Care Control Panel Tester Name Role Phone Jasson Santiago MD Primary Care Provider [phone] Madisyn Elliott MD Primary Care Provider Madisyn Benoit MD Unavailable Unavailable Godwin Griffith MD Unavailable Unavailable Adrienne Miller NP Unavailable [phone] Godwin Griffith MD Unavailable Unavailable Alfonso Pedersen MD Unavailable [phone] Encounter Details Date Type Department Care Team Description 06/02/2018 Gold Leaf Roller Report Medical Records [address] [place] [address] Fabián Maldonado Jr., MD Social History Tobacco Use Types Packs/Day [...] on filedocumented in this encounter Care Teams Control Panel Tester Relationship Specialty Start Date End Date Jasson Santiago MD [address] [place] [address] PCP - General Internal Medicine 03/01/18 11/16/18 Madisyn Elliott MD [address] [place] [address] PCP - General Internal Medicine 11/17/18 Madisyn Elliott MD [address] [place] [address] 01/12/18 02/10/21 Godwin Griffith MD [address] [place] [address] Specialist Cardiovascular Disease 05/24/20 02/10/21 Adrienne Miller, LOCO [address] [place] [address] Nurse Practitioner Cardiology 03/13/20 Godwin Griffith MD [address] [place] [address] Agricultural Produce Washer Cardiovascular Disease 03/13/20 04/18/23 Alfonso Pedersen MD [address] [place] [address] [place] [address] Specialist Cardiovascular Disease 08/24/23 documented as of this encounter
--- OUTSIDE RECORDS SUMMARY | 2024-07-25 12:45 | XMS_ITS | Encounter Summary ---
Author Organization [facility] Address [facility] [place] [address] Care Team Providers Care Leach Cell Operator Name Role Phone Jasson Santiago MD Primary Care Provider [phone] Madisyn Elliott MD Primary Care Provider Madisyn Benoit MD Unavailable Unavailable Godwin Griffith MD Unavailable Unavailable Adrienne Miller NP Unavailable [phone] Godwin Griffith MD Unavailable Unavailable Alfonso Pedersen MD Unavailable [phone] Encounter Details Date Type Department Care Team Description 08/09/2018 Walk In Clinic Visit Medical Records [address] [place] [address] [facility] Social History Tobacco Use Types Packs/Day Years [...] on filedocumented in this encounter Care Teams Leach Cell Operator Relationship Specialty Start Date End Date Jasson Santiago MD [address] [place] [address] PCP - General Internal Medicine 03/01/18 11/16/18 Madisyn Elliott MD [address] [place] [address] PCP - General Internal Medicine 11/17/18 Madisyn Elliott MD [address] [place] [address] 01/12/18 02/10/21 Godwin Griffith MD [address] [place] [address] Specialist Cardiovascular Disease 05/24/20 02/10/21 Adrienne Miller NP [address] [place] [address] Nurse Practitioner Cardiology 03/13/20 Godwin Griffith MD [address] [place] [address] Cone Worker Cardiovascular Disease 03/13/20 04/18/23 Alfonso Pedersen MD [address] [place] [address] [place] [address] Specialist Cardiovascular Disease 08/24/23 documented as of this encounter
--- OUTSIDE RECORDS SUMMARY | 2024-07-25 12:45 | XMS_ITS | Encounter Summary ---
Author Organization [facility] Address [facility] [place] [address] Care Team Providers Care Agronomy Instructor Name Role Phone Jasson Santiago MD Primary Care Provider [phone] Madisyn Elliott MD Primary Care Provider Madisyn Benoit MD Unavailable Unavailable Godwin Griffith MD Unavailable Unavailable Adrienne Miller NP Unavailable [phone] Godwin Griffith MD Unavailable Unavailable Alfonso Pedersen MD Unavailable [phone] Encounter Details Date Type Department Care Team Description 06/02/2018 Upfitter Report Medical Records [address] [place] [address] Godwin Griffith MD Social History Tobacco Use [...] on filedocumented in this encounter Care Teams Agronomy Instructor Relationship Specialty Start Date End Date Jasson Santiago MD [address] [place] [address] PCP - General Internal Medicine 03/01/18 11/16/18 Madisyn Elliott MD [address] [place] [address] PCP - General Internal Medicine 11/17/18 Madisyn Elliott MD [address] [place] [address] 01/12/18 02/10/21 Godwin Griffith MD [address] [place] [address] Specialist Cardiovascular Disease 05/24/20 02/10/21 Adrienne Miller NP [address] [place] [address] Nurse Practitioner Cardiology 03/13/20 Godwin Griffith MD [address] [place] [address] Bed Laster Cardiovascular Disease 03/13/20 04/18/23 Alfonso Pedersen MD [address] [place] [address] [place] [address] Specialist Cardiovascular Disease 08/24/23 documented as of this encounter
--- OUTSIDE RECORDS SUMMARY | 2024-07-25 12:45 | XMS_ITS | Encounter Summary ---
Author Organization [facility] Address [facility] [place] [address] Care Team Providers Care Chocolate Refining Roller Name Role Phone Madisyn Elliott MD Primary Care Provider Madisyn Benoit MD Unavailable Unavailable Godwin Griffith MD Unavailable Unavailable Adrienne Miller NP Unavailable [phone] Godwin Griffith MD Unavailable Unavailable Alfonso Pedersen MD Unavailable [phone] Encounter Details Date Type Department Care Team Description 12/02/2018 Release of Information Medical Records [address] [place] [address] Abstract, Provider Social History Tobacco Use Types [...] on filedocumented in this encounter Care Teams Chocolate Refining Roller Relationship Specialty Start Date End Date Madisyn Elliott MD PCP - General Internal Medicine 11/17/18 Madisyn Elliott MD 01/12/18 02/10/21 Godwin Griffith MD Specialist Cardiovascular Disease 05/24/20 Adrienne Miller NP Nurse Practitioner Cardiology 03/13/20 Godwin Griffith MD Carpet Renovator Cardiovascular Disease 03/13/20 04/18/23 Alfonso Pedersen MD [address] [place] [address] [place] [address] Specialist Cardiovascular Disease 08/24/23 documented as of this encounter
--- OUTSIDE RECORDS SUMMARY | 2024-07-25 12:46 | XMS_ITS | Encounter Summary ---
Author Organization [facility] Address [facility] [place] [address] Care Team Providers Care Mail Processing Equipment Mechanic Name Role Phone Madisyn Elliott MD Primary Care Provider Madisyn Benoit MD Unavailable Unavailable Godwin Griffith MD Unavailable Unavailable Adrienne Miller NP Unavailable Godwin Griffith MD Unavailable Unavailable Alfonso Pedersen MD Unavailable [phone] Encounter Details Date Type Department Care Team Description 05/22/2020 SCAN Medical Records [address] [place] [address] Abstract, Provider Social History Tobacco Use Types [...] Date/Time Associated Diagnosis Comments OUTSIDE LAB Routine 05/22/2020 documented in this encounter Results * OUTSIDE LAB (05/22/2020) Provider Abstract LAB documented in this encounter Visit Diagnoses Not on filedocumented in this encounter Care Teams Mail Processing Equipment Mechanic Relationship Specialty Start Date End Date Madisyn Elliott MD PCP - General Internal Medicine 11/17/18 Madisyn Elliott MD 01/12/18 02/10/21 Godwin Griffith MD Specialist Cardiovascular Disease 05/24/20 Adrienne Miller NP Nurse Practitioner Cardiology 03/13/20 Godwin Griffith MD Logistics Operations Manager Cardiovascular Disease 03/13/20 04/18/23 Alfonso Pedersen MD [address] [place] [address] [place] [address] Specialist Cardiovascular Disease 08/24/23 documented as of this encounter
--- OUTSIDE RECORDS SUMMARY | 2024-07-25 12:46 | XMS_ITS | Encounter Summary ---
Author Organization [facility] Address [address] [place] [address] Care Team Providers Care Metal Furnace Operator Name Role Phone Jasson Santiago MD Primary Care Provider [phone] Madisyn Elliott MD Primary Care Provider Madisyn Benoit MD Unavailable Unavailable Godwin Griffith MD Unavailable Unavailable Adrienne Miller NP Unavailable Godwin Griffith MD Unavailable Unavailable Alfonso Pedersen MD Unavailable [phone] Encounter Details Date Type Department Care Team Description 09/22/2018 Orders Only Pulmonology - [address] [place] [address] Huang Ptael MD Moderate persistent asthma without complication (Primary Dx) Social History Tobacco Use Types Packs/Day Years [...] documented as of this encounter Visit Diagnoses Diagnosis Moderate persistent asthma without complication- Primary Unspecified asthma documented in this encounter Care Teams Metal Furnace Operator Relationship Specialty Start Date End Date Jasson Santiago MD [address] [place] [address] PCP - General Internal Medicine 03/01/18 11/16/18 Madisyn Elliott MD [address] [place] [address] PCP - General Internal Medicine 11/17/18 Madisyn Elliott MD [address] [place] [address] 01/12/18 02/10/21 Godwin Griffith MD [address] [place] [address] Specialist Cardiovascular Disease 05/24/20 02/10/21 Adrienne Miller NP [address] [place] [address] Nurse Practitioner Cardiology 03/13/20 Godwin Griffith MD [address] [place] [address] Senior Mechanical Design Engineer Cardiovascular Disease 03/13/20 04/18/23 Alfonso Pedersen MD [address] [place] [address] [place] [address] Specialist Cardiovascular Disease 08/24/23 documented as of this encounter
--- OUTSIDE RECORDS SUMMARY | 2024-07-25 12:46 | XMS_ITS | Clinical Summary ---
Author Organization [facility] Address [address] [place] [address] Care Team Providers Care Firearms Model Maker Name Role Phone Unavailable Primary Care Provider Unavailabl e Immunizations Immunization Administration Dates Next Due Covid-19 MRNA Vaccine - Pfizer 12+ (Purple Cap) 04/30/2020,04/09/2020 Social History Tobacco Use Types Packs/Day Years Used Date Smoking Tobacco: Never Assessed Comments Unknown Sex and Gender Information Value Date Recorded Sex Assigned at Not on file Legal Sex Female 10:15 PM EST Gender Identity Not on file Sexual Orientation Not on file Plan of Treatment Health Maintenance Due Date Last Done Comments DTaP/Tdap/Td Vaccines (1 - Tdap) 02/16/1960 Pneumococcal Vaccines 50+ (1 of 1 - PCV) 1991 Zoster (Shingles) Vaccine (1 of 2) 1991 DXA Bone Density (Females,Ages 65 and older) 2006 RSV Vaccine 60 years and older and Patients (1 - 1-dose 75+ series) 02/16/2016 COVID-19 Vaccine ( season) 2023 04/30/2020, 04/09/2020 Influenza Vaccine 10/13/2024 11/24/2018, , 12/22/2016, Additional history exists Hepatitis B Vaccines Aged Out No long er eligible based on patient's age to complete this topic Insurance MEDICARE PART A & B
--- OUTSIDE RECORDS SUMMARY | 2024-07-25 12:46 | XMS_ITS | Encounter Summary ---
Author Organization [facility] Address [facility] [place] [address] Care Team Providers Care Seat Cover Installer Name Role Phone Madisyn Elliott MD Primary Care Provider Adrienne Sorensen NP Unavailable [phone] Godwin Griffith MD Unavailable Unavailable Alfonso Pedersen MD Unavailable [phone] Encounter Details Date Type Department Care Team Description 11/28/2021 SCAN Medical Records [address] [place] [address] Abstract, Provider Social History Tobacco Use Types [...] Date/Time Associated Diagnosis Comments OUTSIDE LAB Routine 11/28/2021 documented in this encounter Results * OUTSIDE LAB (11/28/2021) Provider Abstract LAB documented in this encounter Visit Diagnoses Not on filedocumented in this encounter Care Teams Seat Cover Installer Relationship Specialty Start Date End Date Madisyn Elliott MD PCP - General Internal Medicine 11/17/18 Adrienne Miller NP Nurse Practitioner Cardiology 03/13/20 Godwin Griffith MD Single Stroke Preformer Cardiovascular Disease 03/13/20 04/18/23 Alfonso Pedersen MD [address] [place] [address] Dr [address] [place] [address] Specialist Cardiovascular Disease 08/24/23 documented as of this encounter
--- OUTSIDE RECORDS SUMMARY | 2024-07-25 12:46 | XMS_ITS | Data Portability ---
Author Organization [facility], COUNT INCLUDES [facility] - INPATIENT Address [address] [place] [address] Care Team Providers Care Humid System Operator Name Role Phone YUSEF ALBERTO Primary Care Provider Assessment Encounter Date Assessment Date Assessment LastModified by Organization Details LastModified Time 08/17/2023 08/17/2023 Imaging: Radiographs left shoulder obtained and reviewed x-rays demonstrate anatomic shoulder arthroplasty in place. Components appear well-positioned. No evidence of loosening or perioperative complication. No evidence of obvious cuff failure. 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 Overall she is doing okay. She has intermittent pain in the shoulder. I did tell her that this can sometimes occur certainly 10 years out from anatomic arthroplasty. Her components appear well-positioned. There is no evidence of obvious loosening or obvious cuff failure. I told her that I would try and live at this the best I could and when she comes off the Eliquis she can resume anti-inflammator ies as able to tolerate. She is happy with this. Will plan on keeping an eye on it for now. I am always happy to see her back on an as-needed basis. I spent a total of 30 minutes on the day of the visit, which included time spent preparing to see the patient by reviewing any pertinent aspects of the patient's medical record, such as prior clinical notes, imaging studies or test results, obtaining patient history, performing a medically necessary examination, counseling/educa ting the patient on both nonoperative and operative management of their condition including the expected recovery time frame and treatment course,, independently interpreting test results including XR , coordinating patient care, and documenting information in the EHR. [email or web address] Not available 08/17/2023 22:16:05 02/25/2024 02/25/2024 Imaging: Previous x-rays of the shoulder were reviewed. Anatomic arthroplasty in place no evidence of loosening of the humeral or glenoid component. 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 We had a long conversation in the office today. We talked about treatment options. Again we talked about what would be involved in a revision arthroplasty and she does not want to go through this. I would agree with her that it would be a lot to go through and I would have concerns regarding her bone quality. She is going to try to live with the shoulder as best she can with modified activities. I will see her back on an as-needed basis. All of her questions were addressed in the office today. I spent a total of 20 minutes on the day of the visit, which included time spent preparing to see the patient by reviewing any pertinent aspects of the patient's medical record, such as prior clinical notes, imaging studies or test results, obtaining patient history, performing a medically necessary examination, counseling/educa ting the patient on both nonoperative and operative management of their condition including the expected recovery time frame and treatment course, independently interpreting test results including xr , coordinating patient care, and documenting information in the EHR. [email or web address] Not available 02/25/2024 10:58:02 Plan of Treatment Reminders Order Date Submit Date Provider Last Modified By Organization Details Last Modified Time Details Appointments None record ed. Lab None record ed. Referral None record ed. Procedures None record ed. Surgeries None record ed. Imaging None record ed. Medication Orders None record ed. Patient TargetsNo targets recorded. Patient InstructionsNo instructions recorded. Reason for Referral None Reported. Results Created Date Observation Date Name Description Value Unit Range Abnormal Flag Note LastModifiedBy Organization Detail LastModifiedTime 08/17/19 24 08/17/2023 XR SHOUL DAMON 2+ VW LEFT [id number] Opal Batsheva downey Pt Name : FAB CARABALLO 46 -Date : [birth year] Sex: F Locat ion : [facility] DXRAD Visit : [id number] Admit Date: 08-16 Date of Servi ce: 08-16 Exam : XR SHOUL DAMON 2+ VW LEFT Statu s: Final Order MD : SYL PEDRO Ord Tel#: [phone] CC Provi damon:, ----- ----- ----- ----- ----- ----- ----- ----- ----- ----- ----- ----- ----- ----- ----- ---- Monty rison : - FRACISCO NGS: Left shoul damon total arthr oplas ty is in stand ayde align ment witho ut hardw are compl icati ons. No humer us fract ure. AC joint exhib its moder ate narro wing. DANA T JOSE D BY: DIPAK Kramer 08/16 13:07 :49 Not Available [facility] - Rad [address] [facility], [place], [address], 08/17/2023 13:10:04 08/19/19 24 08/17/2023 XR, shoul damon, 2 or more view [facility] Name : JANA THOMASON 5 - Date: 1939 Sex: F Locati on : [facility] D[facility] Visit: [id number] Admit Date: 2023 Date of Servic e: 2023 Exam : XR SHOULD ER 2+ VW LEFT Status : Final Order MD : ANTOINE CHANDLER Ord Tel#:( [phone] CC Provid er:, ------ ------ ------ ------ ------ ------ ------ ------ ------ ------ ------ ------ ------ - Compar lynn: - PUMA GS: Left should er total arthro plasty is in standa rd alignm ent withou t hardwa re compli cation s. No humeru s fractu re. AC joint exhibi ts modera te narrow ing. REPORT SIGNED BY: CANDI RANKIN 13:07: 49 [email or web address] [facility] - Rad [address] [facility], [place], [address], 08/19/2023 16:48:52 08/20/1908/17/2023 XR, linda damon, 2 or more view Opal SueEasy Pt Name : JANA THOMASON 5 - Date: 1939 Sex: F Locati on : [facility] Voxeo DXRAD Visit: [id number] Admit Date: 2023 Date of [facility] e: 2023 Exam : XR SHOULD ER 2+ VW LEFT Status : Final Order MD : ANTOINE CHANDLER Ord Tel#:[phone] CC Provid er:, ------ ------ ------ ------ ------ ------ ------ ------ ------ ------ ------ ------ ------ - Compar lynn: - FINDIN GS: Left should er total arthro plasty is in standa rd alignm ent withou t stevenwa re compli cation s. No humeru s fractu re. AC joint exhibi ts modera te narrow ing. REPORT SIGNED BY: CANDI RANKIN 13:07: 49 [email or web address] [facility] - Rad [address] [facility], [place], [address], 08/22/2023 14:44:01 08/27/1908/17/2023 XR, humer us Opal SueEasy Pt Name : JANA THOMASON 5 - Date: 1939 Sex: F Locati on : [facility] DXRAD Visit: [id number] Admit Date: 2023 Date of Servic e: 2023 Exam : XR AMINATAERU S 1 VW LEFT Status : Final Order MD : ANTOINE CHANDLER Tel#:( [phone] CC Provid er:, ------ ------ ------ ------ ------ ------ ------ ------ ------ ------ ------ ------ ------ - INDICA TION: Should er arthro plasty . Single view of the shobha s demons trates a left should er arthro plasty in place. No osseou s lesion is detect ed. REPORT SIGNED BY: CHRISSY GRANDE 14:15: [address], [address], 08/29/2023 11:04:03 Result Notes None recorded. Procedures Surgical History Date Name Laterality Status Provider Name and Address Organization Details Recorded Time 4 Orthopaedic Surgery completed Lowell Cochran MA [facility] 08/17/2023 11:47:36 Imaging Results Imaging Date Name Status LastModified by Blank acosta Details LastModified Time 08/17/2023 XR, shoulder, 2 or more view completed [address], [address], 08/19/2023 16:48:52 08/17/2023 XR, shoulder, 2 or more view completed [address], [address], 08/22/2023 14:44:01 08/17/2023 XR, humerus completed [address], [address], 08/29/2023 11:04:03 Procedure Notes None recorded. Medical Equipment None Reported. Allergies No known drug allergies Medications Name Sig Start Date Stop Date Status Note LastModified by Organization Details LastModified Time lysine active Not Available Not Availa ble Not Available Vitamin C active Not Available Not Erica ilable Not Available atorvastatin active Not Available Not Available Not Available aspirin active Not Available Not Avail able Not Available amoxicillin active Not Available Not A vailable Not Available vitamin E active Not Available Not Erica ilable Not Available diazepam active Not Available Not Avai lable Not Available Claritin active Not Available Not Avai lable Not Available amlodipine active Not Available Not Av ailable Not Available Vitamin D active Not Available Not Erica ilable Not Available lisinopril active Not Available Not Av ailable Not Available Tylenol active Not Available Not Avail able Not Available Glucosamine active Not Available Not A vailable Not Available Zyrtec active Not Available Not Availa ble Not Available Protonix active Not Available Not Avai lable Not Available duloxetine active Not Available Not Av ailable Not Available Eliquis active Not Available Not Avail able Not Available Flonase Allergy Relief active Not Available Not Availab le Not Available Vitals Date Recorded Body height Body mass index (BMI) Body weight Provider Name and Address Organization Details Last Updated DateTime 08/17/2023 160.02 cm 25.3 kg/m2 43160.71 g Lowell Cochran [place] - [facility] 08/17/2023 11:43:09 Social History None recorded. Functional Status Question Answer Note LastModified by Organizat ion Details LastModified Time What is your level of alcohol consumption? Occasional [email or web address] Information not available 08/17/2023 Do you or have you ever used smokeless tobacco? Never used smokeless tobacco [email or web address] Information not available 08/17/2023 What is your occupation? Retired [email or web address] Information not available 08/17/2023 Do you or have you ever used e-cigarettes or vape? Never used electronic cigarettes Information not available 08/17/2023 Mental Status None recorded. Family History Relationship Description Onset Age of this Age Resolved Age Notes LastModified by Organization Details LastModified Time Father No current problems or disability [email or web address] Not available 02/24 10:21:34 Mother No current problems or disability [email or web address] Not available 02/24 10:21:34 Medical History Condition Response High Blood Pressure Y Osteoarthritis / Rheumatoid arthritis / Other Y Stroke Y Gynecological HistoryNo gynecological history recorded. Obstetrics History GPAL:G 0 P 0 0 0 0 Past Encounters Encounter ID Performer Location Encounter Start Date Encounter Closed Date Diagnosis/Indication Diagnosis SNOMED-CT Code Diagnosis ICD10 Code Diagnosis Note [id number] ANTOINE CHANDLER MD [facility] Office [address] [facility] [address] [place] [address] 08/17/2023 10:45:25 08/17/2023 12:10:39 Pain due to shoulder joint prosthesis 205303920 T84.84XA [id number] ANTOINE CHANDLER MD [facility] Office [address] [place] [phone] 02/25/2024 10:09:28 02/25/2024 12:27:50 Complication associated with orthopedic device 926966954 T84.84XD left Health Concerns Section Related Observation LastModified by Organization Detai ls LastModified Time None Recorded Concern Status LastModified by Organization Details LastModified Time None Recorded Advance Directives Directive None Recorded Payers Insurance Date Sequence Insurance Name Policy Number Policy Jarquin Covered Member ID Jarquin Member ID Guarantor Name 02/18/2024 1 [place] [employer] Roselia Thomason [id number] Jana Thomason 02/24/2024 2 [place] [id number] Jana Thomason [id number] Jana Thomason 02/20/2024 [employer] - SPECIALITY CLAIMS (MEDICARE DME REGION A) Jana Thomason [id number] Jana Thomason Notes Date Note Type Note Provider Name and Address Organization Details Recorded Time 08/17/2023 text/html Jana is a very pleasant 86-vcyn-joo-year-o ld gjuud-gror-mjaxlrh t female presents for evaluation of left shoulder pain. 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 She is done relatively well. Over the last 6 months she has had some intermittent pain in the shoulder. She notes that this is fluctuated somewhat. She has some catching at times as well. Occasionally she has pain overhead reaching with and pulling dressing and dressing combing her and sleeping at night. She denies any numbness and tingling in the arm. She has been taking Tylenol. She is also done few weeks of physical therapy. Of note she does have a history of a stroke and recently had to be on Eliquis. As a result of this she has had to decrease her use of NSAIDs which usually have helped her from a pain standpoint. ANTOINE CHANDLER MD [address] [place] [address], [phone], [facility] 08/18/2023 07:46:52 02/25/2024 text/html Jana Is a very pleasant 84-year-old female presenting for repeat evaluation of her left shoulder. 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 She is relatively well compensated however she does have moments where she feels the shoulder move on her which causes her pain. ANTOINE CHANDLER MD [address] [place] [address], [phone], [facility] 02/25/2024 12:49:15 OBGyn Episode No OBEpisode recorded.
--- OUTSIDE RECORDS SUMMARY | 2024-07-25 12:46 | XMS_ITS ---
Author Name [facility] Organization Unknown History of Medication Use Medication Directions Dispensed Refills Start Date End Date Stat meloxicam 15 mg tablet TAKE 1/2 (HALF) TABLET BY MOUTH TWICE DAILY active albuterol sulfate HFA 90 mcg/actuation aerosol inhaler INHALE 2 PUFFS EVERY 6 HOURS NEEDED FOR WHEEZING/SHORTNE SS OF BREATH active benzonatate 200 mg capsule TAKE 1 CAPSULE BY MOUTH 3 TIMES A DAY FOR 7 DAYS NEEDED FOR COUGH active betamethasone, augmented 0.05 % topical ointment APPLY TO AFFECTED AREA BID FOR UP TO 2 WEEKS, FOLLOWED BY 1 WEEK OFF. REPEAT NEEDED. active diazepam 5 mg tablet TAKE 1 TABLET BY MOUTH TWICE A DAY NEEDED (PA DENIED) active doxycycline hyclate 50 mg capsule TAKE 1 CAPSULE BY MOUTH TWICE A DAY active doxycycline monohydrate 100 mg tablet TAKE 1 TABLET BY MOUTH TWICE A DAY X 14 DAYS active losartan 25 mg tablet TAKE 1 TABLET BY MOUTH EVERY DAY active methylprednisolone 4 mg tablets in a dose pack TAKE 6 TABLETS ON DAY 1 DIRECTED ON PACKAGE AND DECREASE BY 1 TAB EACH DAY FOR A TOTAL OF 6 DAYS active pantoprazole 40 mg tablet,delayed release TAKE 1 TABLET BY MOUTH EVERY DAY active prednisolone acetate 1 % eye drops,suspension LOCATION: LEFT EYE. APPLY ONE DROP TO THE LEFT EYE ONCE DAILY. 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 ProblemAct [facility] Pain of left shoulder region active 2023-08-16 ProblemAct [facility] Pain of left shoulder joint active 2023-07-19 ProblemAct [facility] Encounters Encounter Type Encounter Reason Primary Diagnosis Location Date Ambulatory [facility] [place] 06/06/2024 Ambulatory [facility] [place] 06/05/2024 Ambulatory [facility] [place] 06/05/2024 Ambulatory [facility] [place] 05/09/2024 Ambulatory [facility] [place] 08/13/2023 Ambulatory [facility] [place] 01/22/2023 Ambulatory [facility] [place] 01/21/2023 Ambulatory [facility] [place] 01/21/2023 Ambulatory [facility] [place] 01/21/2023 Ambulatory [facility] [place] 01/21/2023 Ambulatory [facility] [place] 01/20/2023
--- OUTSIDE RECORDS SUMMARY | 2024-07-25 12:46 | XMS_ITS | Encounter Summary ---
Author Organization [facility] Address [facility] [place] [address] Care Team Providers Care Video Engineer Name Role Phone Madisyn Elliott MD Primary Care Provider Madisyn Benoit MD Unavailable Unavailable Godwin Griffith MD Unavailable Unavailable Adrienne Miller NP Unavailable [phone] Godwin Griffith MD Unavailable Unavailable Alfonso Pedersen MD Unavailable [phone] Encounter Details Date Type Department Care Team Description 05/22/2020 SCAN Medical Records [address] [place] [id number] Abstract, Provider Social History Tobacco Use Types [...] Name Priority Date/Time Associated Diagnosis Comments OUTSIDE EKG Routine 05/22/2020 documented in this encounter Results * OUTSIDE EKG (05/22/2020) Provider Abstract CARDIOLOGY documented in this encounter Visit Diagnoses Not on filedocumented in this encounter Care Teams Video Engineer Relationship Specialty Start Date End Date Madsiyn Elliott MD PCP - General Internal Medicine 11/17/18 Madisyn Elliott MD 01/12/18 02/10/21 Godwin Griffith MD Specialist Cardiovascular Disease 05/24/20 Adrienne Miller NP Nurse Practitioner Cardiology 03/13/20 Godwin Griffith MD Night Order Selector Cardiovascular Disease 03/13/20 04/18/23 Alfonso Pedersen MD [address] [place] [address] [place] [id number] Specialist Cardiovascular Disease 08/24/23 documented as of this encounter
--- OUTSIDE RECORDS SUMMARY | 2024-07-25 12:46 | XMS_ITS | Clinical Summary ---
Author Organization [facility] [employer] Address [address] [address] Phone Care Team Providers Care Audio Production Instructor Name Role Phone Madisyn Elliott MD Primary Care Provider [phone] Allergies No known active allergies Medications amLODIPine (NORVASC) 5 mg tablet Take 1 tablet (5 mg total) by mouth 1 (one) time each day. 90 tablet 1 02/14/2024 Active meloxicam (MOBIC) 7.5 mg tablet Take 1 tablet (7.5 mg total) by mouth 2 (two) times a day. Active atorvastatin (LIPITOR) 80 mg tablet Take 1 tablet (80 mg total) by mouth at bedtime. Active DULoxetine (CYMBALTA) [address] capsule Take 1 capsule (20 mg total) by mouth 1 (one) time each day. Do not crush or chew. Active acetaminophen (TYLENOL) 500 mg capsule Take 1 capsule (500 mg total) by mouth every 6 (six) hours if needed for mild pain. Active cholecalciferol (VITAMIN D-3) 50 mcg (2,000 unit) tablet Take 1 tablet (2,000 Units total) by mouth 1 (one) time each day. Active lysine 500 mg tablet Take by mouth. Active glucosamine HCl/chondroitin solorio (GLUCOSAMINE-CH ONDROITIN ORAL) Acti ve diazePAM (VALIUM) 5 mg tablet Take by mouth if needed for anxiety. Active loratadine (CLARITIN) 10 mg tablet Take 1 tablet (10 mg total) by mouth 1 (one) time each day. Active pantoprazole (PROTONIX) 40 mg EC tablet Take 1 tablet (40 mg total) by mouth 1 (one) time each day before breakfast. Do not crush, chew, or split. Active ascorbic acid (VITAMIN C) 500 mg CR capsule Take 1 capsule (500 mg total) by mouth 1 (one) time each day. Active amLODIPine (NORVASC) 2.5 mg tablet Take by mouth 1 (one) time each day. Active aspirin 81 mg EC tablet Take 1 tablet (81 mg total) by mouth 1 (one) time each day. Active blood pressure test kit-medium kitIndications: Primary hypertension,El evated blood pressure reading 1 kit if needed (as needed for hypertension ). 1 kit 06/12/2024 Active Active Problems Problem Noted Date Diagnosed Date Dyspnea on exertion 06/12/2024 Assessment & Plan (06/12/2024 10:13 AM EDT): The patient has been noticing symptoms of mild exertional dyspnea. She experiences shortness of breath with certain activities. Her shortness of breath with exertion has been present for more than 1 year. 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 Even though her symptoms may be secondary to her underlying pulmonary disease, we also need to rule out the presence of underlying ischemic heart disease. As such, we will refer the patient for an exercise stress echocardiogram. Orders: Stress echocardiogram (TTE) exercise with PRN contrast, bubble, strain, and 3D order panel; Future Nonrheumatic aortic valve stenosis 06/12/2024 Assessment & Plan (06/12/2024 10:13 AM EDT): The patient was found to have mild aortic valve stenosis on her echocardiogram done in November 2023. Will continue periodic echocardiographic monitoring. Orders: Stress echocardiogram (TTE) exercise with PRN contrast, bubble, strain, and 3D order panel; Future Nonrheumatic mitral valve regurgitation 06/13/19 Assessment & Plan (06/12/2024 10:13 AM EDT): The patient was noted to have mild to moderate mitral valve insufficiency on her echocardiogram done in November 2023. She is complaining of symptoms of mild exertional dyspnea but her symptoms have been present for more than 1 year. Will order an exercise stress echocardiogram to rule out the presence of ischemic heart disease on the same test will be able to evaluate her MR and pulmonary artery systolic pressures with exercise. Orders: Stress echocardiogram (TTE) exercise with PRN contrast, bubble, strain, and 3D order panel; Future Primary hypertension 06/12/2024 Assessment & Plan (06/12/2024 10:13 AM EDT): The patient has a history of hypertension. She was previously on lisinopril but this was discontinued due to a recurrent cough. After this, the dose of her amlodipine was increased from 5 mg daily up to 7.5 mg orally daily by the patient's primary care physician. Blood pressure today in our office was noted to be appropriate. The patient brought her home blood pressure machine to our office today and it was noted to be consistently higher than our office based blood pressure monitor. I suspect that her home blood pressure machine may be inaccurate. I gave her prescription for a new home blood pressure monitor. Encounters Date Type Department Care Team Description 06/27/2024 Telephone [facility] Cardiology [facility] [address] [place] [address] Alfonso Manzano MD 06/22/2024 9:30 AM EDT Ancillary Procedure [facility] Cardiology [facility] [address] [place] [address] Nonrheumatic mitral valve regurgitation; Nonrheumatic aortic valve stenosis; Dyspnea on exertion 06/12/2024 9:20 AM EDT Office Visit [facility] [address] [place] [address] Alfonso Manzano MD Primary hypertension (Primary Dx); Nonrheumatic mitral valve regurgitation; Nonrheumatic aortic valve stenosis; Dyspnea on exertion 06/12/2024 Telephone [facility] [address] [place] [id number] Alfonso Manzano MD BP Monitor 06/09/2024 Telephone [facility] Cardiology [facility] [address] [place] [address] Alfonso Manzano MD Medication Problem 05/29/2024 Telephone [place] [facility] [address] [place] [address] Alfonso Manzano MD Medication Problem from Last 3 Months Immunizations Name Administration Dates Next Due [facility] SARS-CoV-2 COVID-19, mRNA, LNP-S, preservative free 04/30/2020,04/09/2020 Surgical History Surgery Date Site/Laterality Comments APPENDECTOMY PROCEDURE: HISTORICAL APPENDECTOMY BREAST SURGERY PROCEDURE: AR UNLISTED PROCEDURE BREAST OTHER SURGICAL HISTORY Bilateral PROCEDURE: HISTORY OTHER; COMMENT: blepharoplasty, upper lids COLONOSCOPY 08/19/2009 PROCEDURE: HISTORICAL COLONOSCOPY; COMMENT: 5 year repeat OTHER SURGICAL HISTORY 07/25/2013 Left PROCEDURE: AR ARTHROPLASTY GLENOHUMERAL JOINT TOTAL SHOULDER; COMMENT: replacement OTHER SURGICAL HISTORY 05/14/2020 PROCEDURE: AR ARTHRP ACETBLR/PROX FEM PROSTC AGRFT/ALGRFT FOOT SURGERY PROCEDURE: HISTORICAL FOOT SURGERY Medical History Medical History Date Comments Allergic rhinitis 10/12/2017 DX:Allergic rh initis Anxiety 09/10/2017 DX:Anxiety Multiple pulmonary nodules 09/14/2012 DX:Mu ltiple pulmonary nodules Esophageal reflux 12/29/2016 DX:Esophageal reflux Hyperlipidemia 09/10/2017 DX:Hyperlipidemi a Insomnia 07/06/2017 DX:Insomnia Osteopenia 04/08/2017 DX:Osteopenia Vitamin D deficiency 07/06/2017 DX:Vitamin D deficiency History of herpes zoster 04/14/2018 DX:Hist ory of herpes zoster Elevated liver enzymes 12/29/2016 DX:Elevat ed liver enzymes Diverticula, colon 11/22/2018 DX:Diverticul a, colon; COMMENT: 08/19/09 Mitral valve regurgitation 12/26/2018 DX:Mi tral valve regurgitation; COMMENT: mild Aortic insufficiency 12/26/2018 DX:Aortic i nsufficiency; COMMENT: Mild - Moderate Osteoarthritis 12/26/2018 DX:Osteoarthriti s; COMMENT: Cervical Spine 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 coli)(038.42) ([facility] V24, [facility] V28) DX:Septicemia due to Escheri matt coli (E. coli)(038.42) ([facility]); COMMENT: resp failure Cough DX:Cough GERD (gastroesophageal reflux disease) DX:GERD (gastroesophageal reflux disease) History of wrist fracture DX:His tory of wrist fracture; COMMENT: remote Stress fracture of foot DX:Stres s fracture of foot Family History Medical History Relation Name Comments Coronary artery disease Father Dementia Mother Relation Name Status Comments Father Maternal Grandfather Maternal Grandmother Mother Paternal Grandfather Paternal Grandmother Social History Tobacco Use Types Packs/Day Years Used Date Smoking Tobacco: Former Cigarettes Q uit: 03/15/1963 Smokeless Tobacco: Never Alcohol Use Standard Drinks/Week Comments Yes 0 (1 standard drink = 0.6 oz pur e alcohol) occ wine Comments Unknown Sex and Gender Information Value Date Recorded Sex Assigned at Not on file Legal Sex Female 4:15 AM EST Gender Identity Not on file Sexual Orientation Not on file Obstetrics History Last Filed Vital Signs Vital Sign Reading Time Taken Comments Blood Pressure 140/80 06/22/2024 10:56 AM EDT Pulse 62 06/12/2024 9:18 AM EDT Temperature - - Respiratory Rate - - Oxygen Saturation 95% 06/12/2024 9:18 AM EDT Inhaled Oxygen Concentration - - Weight 64.9 kg (143 lb) 06/22/2024 10:56 AM EDT Height 160 cm (5' 3 ) 06/22/2024 10:56 AM EDT Body Mass Index 25.33 06/22/2024 10:56 AM EDT Plan of Treatment Upcoming Encounters Date Type Department Care Team (Late st Contact Info) Description 08/09/2024 8:20 AM EDT Office Visit [facility] [address] [place] [address] Alfonso Manzano MD [address] [place] [address] [place] [address] Health Maintenance Due Date Last Done Comments Pneumococcal Vaccine: 50+ Years (2 of 2 - PCV) 02/16/2015 02/16/2014, 02/27/2006 RSV Immunization Adult Patients (1 - 1-dose 75+ series) 02/16/2016 Cholesterol Screening (Lipid Panel) 02/21/2022 Depression Screening 02/21/2022 Falls Risk Assessment 02/21/2022 Osteoporosis Screening (Bone Density Screening) 02/21/2022 Social Influencers of Health Screening 02/21/2022 Medicare Annual Wellness Visit 11/27/2022 11/27/2021 COVID-19 Vaccine ( - season) 2023 04/30/2020, 04/09/2020 DTaP,Tdap,and Td Vaccines (3 - Td or Tdap) 05/30/2024 05/30/2014, 12/20/2007 Hypertension/CHF/CAD Annual BMP Blood Test 08/07/2024 08/08/2023 Influenza Vaccine (Season Ended) 2024 12/15/2022, 12/26/2021, 12/24/2020, Additional history exists Hepatitis A Vaccines Aged Out 06/05/2008, 11/23/19 08 No longer eligible based on patient's age to complete this topic Hepatitis B Vaccines Completed 06/05/2008, 12/20/2007, 11/23/2007 MMR Vaccines Aged Out 12/21/2013 No longer eligi ble based on patient's age to complete this topic Zoster Vaccines Completed 12/11/2017, 09/12, 01/08/2007 HIB Vaccines Aged Out No longer eligi ble based on patient's age to complete this topic HPV Vaccines Aged Out No longer eligi ble based on patient's age to complete this topic IPV Vaccines Aged Out No longer eligi ble based on patient's age to complete this topic Meningococcal ACWY Vaccine Aged Out N o longer eligible based on patient's age to complete this topic Meningococcal B Vaccine Aged Out No l onger eligible based on patient's age to complete this topic RSV Immunization Patients Under 20 months Aged Out No longer eligible based on patient's age to complete this topic Varicella Vaccines Aged Out No longer eligible based on patient's age to complete this topic Procedures Procedure Name Priority Date/Time Associated Diagnosis Comments STRESS ECHOCARDIOGRAM EXERCISE WITH COLOR FLOW & DOPPLER Routine 06/22/2024 10:57 AM EDT Nonrheumatic mitral valve regurgitation Nonrheumatic aortic valve stenosis Dyspnea on exertion from Last 3 Months Results * (ABNORMAL) STRESS ECHOCARDIOGRAM EXERCISE WITH COLOR FLOW & DOPPLER (06/22/2024 10:57 AM EDT) AV Regurgitation PHT 662 ms CV PACS STRESS AR Max Velocity 4.5 m/s CV P ACS STRESS AV Peak Marcelo 2.7 m/s CV PACS STRESS AV Peak Gradient 29 mmHg CV PACS STRESS AV Mean Gradient 16 mmHg CV PACS STRESS Ao VTI 66.9 cm CV PACS STRESS AV Area Continuity Equation 1.7 cm2 CV PACS STRESS AV Area Peak Velocity 1.9 cm2 CV PACS STRESS IVC Proximal 2.2 cm CV PACS STRESS IVSD 1.3(A) 0.6 - 0.9 cm CV PACS STRESS LVIDD 3.7(A) 3.8 - 5.2 cm CV PACS STRESS LVIDS 2.2 2.2 - 3.5 cm CV PACS STRESS LVOT Diameter 2.0 cm CV PAC S STRESS LVOT Mean Marcelo 1.0 m/s CV PAC S STRESS LVOT Mean Grad 5 mmHg CV PA CS STRESS LVOT Peak VTI 36.4 cm CV PAC S STRESS LVOT Peak Marcelo 1.6 m/s CV PAC S STRESS LVOT Peak Gradient 10 mmHg CV PACS STRESS LVPWD 1.3(A) 0.6 - 0.9 cm CV PACS STRESS GLS -19.0 % CV PACS STRESS LVOT Area 3.1 cm2 CV PACS STRESS LVOT Stroke Volume 114 mL CV PACS STRESS TR Peak Gradient 22 mmHg CV PACS STRESS Relative Wall Thickness ratio 0.70 CV PACS STRESS LVOT:AV VTI Index 0.54 CV PACS STRESS FS 41 % CV PACS STRESS LV Mass 2D 166 g CV PACS STRESS LVOT flow 314 mL/s CV PACS STRESS AV Velocity Ratio 0.59 CV PACS STRESS BSA 1.7 m2 CV PACS STRESS Target HR 116 bpm CV PACS STRESS LVIDD Index 2.20 cm/m2 CV PACS STRESS LVIDS Index 1.31 cm/m2 CV PACS STRESS LV Mass Index 2D 99(A) 44 - 88 g/m2 CV PACS STRESS LVOT Stroke Index 68 mL/m2 CV PACS STRESS CRUZITO Index (VTI) 1.02 cm2/m2 CV P ACS STRESS CRUZITO Index (Pk Marcelo) 1.13 cm2/m2 CV PACS STRESS Baseline HR 58 bpm CV PACS STRESS Baseline SBP 140 mmHg CV PACS STRESS Baseline DBP 70 mmHg CV PACS STRESS Peak HR 109 bpm CV PACS STRESS Peak SBP 160 mmHg CV PACS STRESS Peak DBP 70 mmHg CV PACS STRESS Estimated workload 8.3 METS CV PACS STRESS Rate Pressure Product 17,440.0 mmHg*bpm CV PACS STRESS Percent HR 80 % CV PACS STRESS Exercise/injectio n duration (min) 6 min CV PACS STRESS Exercise/injectio n duration (sec) 45 sec CV PACS STRESS Angina Index 0 CV PACS STRESS Woo Treadmill Score [address] Depression (mm) 0 mm CV PACS STRESS Est. RA Pressure 8 mmHg CV PACS STRESS Anatomical Region Laterality Modality Ultrasound Addenda Addendum by Alfonso Manzano MD on 07/07/2024 12:48 PM EDT 1. ??Normal exercise stress echocardiogram. 2. ??Exercise protocol the patient exercised for 6 minutes and 45 seconds as part of a standard Costa protocol. ??The patient achieved 80% of the maximum predicted heart rate. 3. ??Symptoms: No chest pain during the exercise protocol. ??The patient experienced shortness of breath during the exercise protocol. 4. ??Exercise capacity: Average functional capacity for age and gender. 5. ??Stress EKG: No ischemic ECG changes with exercise (at a slightly submaximal heart rate). 6. ??Woo treadmill score: 7 (low risk). 7. Resting echocardiogram: Normal left ventricular systolic function with a left ventricular ejection fraction of 55 to 60%. Normal LV GLS at rest (-19.0%). ??No resting regional wall motion abnormalities. ??Mild aortic stenosis. ??Mild aortic valve regurgitation. ??Mild to moderate mitral valve regurgitation. ??Normal pulmonary artery systolic pressure at rest. 8. Stress echocardiogram: No echocardiographic evidence of an infarct. ??No echocardiographic evidence of exercise-induced cardiac ischemia (at a slightly submaximal heart rate). ??No significant change in the pulmonary artery systolic pressure postexercise. Left Ventricle Left ventricle cavity size is normal. There is mild concentric hypertrophy. Systolic function is normal with an ejection fraction of 55-60%. LV global longitudal strain is normal. Global longitudinal strain is -19.0%. There are no regional LV wall motion abnormalities. Right Ventricle The right ventricular size is normal. The right ventricular function is grossly normal. Left Atrium The left atrial size is grossly normal. Right Atrium The right atrium size is grossly normal. IVC/SVC RA pressures is estimated to be 8 mmHg (IVC diameter >21 mm and decreases >50% during inspiration). Mitral Valve The leaflets are mildly thickened. There is mild - moderate regurgitation. The mitral valve is opening well. Tricuspid Valve Tricuspid valve structure is normal. There is trace regurgitation. Tricuspid stenosis not assessed due to limited exam.The right ventricular systolic pressure is normal. Aortic Valve The aortic valve is trileaflet. The leaflets are mildly thickened. There is mild regurgitation. The PHT of AR is 662 ms. There is mild stenosis. The aortic valve peak velocity is 2.7 m/s. The velocity ratio is 0.59. The mean gradient is 16 mmHg. The peak gradient is 29 mmHg. The aortic valve area by continuity equation is 1.7 cm2. Ascending Aorta The aorta was not assessed. Pericardium There is no pericardial effusion. Study Details Overall the study quality was adequate. Stress Findings A Costa protocol stress test was performed. Overall, the patient's exercise capacity was average. Total stress time was 6 min and 45 sec. The patient experienced no angina during the test. The test was stopped because the patient experienced fatigue. The Woo Treadmill Score is 7. The patient's hemodynamic response was adequate for diagnosis. Blood pressure demonstrated a normal response. Heart rate demonstrated a blunted response not on AV node nneka. Achieved 80% MPHR The patient reported mild shortness of breath during the stress test. No chest pain. ECG 84 yo female with valvular heart disease (mild-mod MR, mild AR and mild ) with MOONEY. Evaluate for ischemia and evaluate MR and PASP with exercise. The ECG shows sinus bradycardia. Abnormal R wave progression across the precordial leads. First degree Av block. Nonspecific T wave abnormality. There were no arrhythmias during stress. There is no ST segment changes during stress. There were no arrhythmias during recovery. The result of the stress ECG was negative for ischemia at good workload, 80% MPHR. Echo Post Stress Left ventricular cavity size decreased from baseline. Left ventricular systolic function improved from baseline. Systolic function is hyperdynamic with an ejection fraction over 70%. Normal wall motion, unchanged from baseline. Nuclear Measurements There is no significant change in the pulmonary artery systolic pressure post stress. Wall Scoring Baseline Score Index: 1.00 The left ventricular wall motion is normal. Wall Scoring Peak Stress Score Index: 1.00 The left ventricular wall motion is globally hyperkinetic. Narrative Procedure Note Lianna Tran PA / Alfonso Manzano MD - 07/07/2024 1. Normal exercise stress echocardiogram. 2. Exercise protocol the patient exercised for 6 minutes and 45 secondsas part of a standard Costa protocol. The patient achieved 80% of themaximum predicted heart rate. 3. Symptoms: No chest pain during the exercise protocol. The patientexperienced shortness of breath during the exercise protocol. 4. Exercise capacity: Average functional capacity for age and gender. 5. Stress EKG: No ischemic ECG changes with exercise (at a slightlysubmaximal heart rate). 6. Woo treadmill score: 7 (low risk). 7. Resting echocardiogram: Normal left ventricular systolic function witha left ventricular ejection fraction of 55 to 60%. No resting regionalwall motion abnormalities. Mild aortic stenosis. Mild aortic valveregurgitation. Mild to moderate mitral valve regurgitation. Normalpulmonary artery systolic pressure at rest. 8. Stress echocardiogram: No echocardiographic evidence of an infarct. Noechocardiographic evidence of exercise-induced cardiac ischemia (at aslightly submaximal heart rate). No significant change in the pulmonaryartery systolic pressure postexercise. Alfonso Manzano MD CV ECHO PROCEDURES Uri thierry Result - Final from Last 3 Months Insurance [facility] MEDICARE Care Teams Audio Production Instructor Relationship Specialty Start Date End Date Madisyn Elliott MD [address] [place] [id number] PCP - General Internal Medicine 01/29/12
--- OUTSIDE RECORDS SUMMARY | 2024-07-25 12:46 | XMS_ITS | Encounter Summary ---
Author Organization [facility] Address [address] [place] [address] Care Team Providers Care Road Inspector Name Role Phone Madisyn Elliott MD Primary Care Provider Adrienne Sorensen NP Unavailable [phone] Godwin Griffith MD Unavailable Unavailable Alfonso Pedersen MD Unavailable [phone] Encounter Details Date Type Department Care Team Description 07/18/2021 SCAN Medical Records [address] [place] [address] Abstract, Provider Social History Tobacco Use Types Packs/Day Years Used Date Smoking Tobacco: Former Cigarettes Q uit: 1963 Smokeless Tobacco: Never Comments:only smoked 1-2 cig s a day Alcohol Use Standard Drinks/Week Comments Not Currently 0 (1 standard drink = 0.6 oz pur e alcohol) 4 drinks per week. Alcohol Habits Answer Date Recorded How often [...] suspected to have Coronavirus/COVID-19? No / Unsure 07/08/2021 1:57 PM EDT documented as of this encounter Plan of Treatment Not on file documented as of this encounter Procedures Procedure Name Priority Date/Time Associated Diagnosis Comments OUTSIDE LAB Routine 07/18/2021 documented in this encounter Results * OUTSIDE LAB (07/18/2021) Provider Abstract LAB documented in this encounter Visit Diagnoses Not on filedocumented in this encounter Care Teams Road Inspector Relationship Specialty Start Date End Date Madisyn Elliott MD PCP - General Internal Medicine 11/17/18 Adrienne Miller NP Nurse Practitioner Cardiology 03/13/20 Godwin Griffith MD Concrete Finisher Apprentice Cardiovascular Disease 03/13/20 04/18/23 Alfonso Pedersen MD [address] [place] [address] [place] [address] Specialist Cardiovascular Disease 08/24/23 documented as of this encounter
--- OUTSIDE RECORDS SUMMARY | 2024-07-25 12:46 | XMS_ITS | Encounter Summary ---
Author Organization [facility] Address [address] [place] [address] Care Team Providers Care Accountant Certified Public Name Role Phone Madisyn Elliott MD Primary Care Provider Adrienne Sorensen NP Unavailable [phone] Godwin Griffith MD Unavailable Unavailable Alfonso Pedersen MD Unavailable [phone] Reason for Visit * Reason Onset Date Comments Blood Pressure Elevated 01/25/2023 Encounter Details Date Type Department Care Team Description 01/25/2023 Telephone Cardio [facility] [address] [facility] [address] [place] [address] Godwin Griffith MD Blood Pressure Elevated Social History Tobacco Use Types Packs/Day Years [...] encounter Miscellaneous Notes * Telephone Encounter - Adrienne Miller NP - 01/25/2023 10:17 AM EST Agree with your advice. Thanks * Telephone Encounter - Sharonda Howard R.N. - 01/25/2023 8:45 AM EST Called pt this morning. Pt states she recently came back from an exhausting trip last Wednesday and had not been checking her BP's recently. She has been feeling increased intermittent fatigue with intermittent HERNANDEZ's- denies lightheadedness and dizziness. Due to this, she decided to check her BP last night and it was 190/108, with a recheck of 170/95. Pt ended up staying home and then rechecking her BP this morning, which was 160/73 with a recent recheck of 143/76. HR ranging around 50-60's throughout. Because of fluctuating BP's, I advised for pt to start a BP log for this week and call back next week with measurements. I asked her to only check BP once in the morning, 2-3hours after taking med ications, and again if she has any symptoms. Pt stated understanding and expressed gratitude. She has been taking all her medications as prescribed. Next OV on 02/16. * Telephone Encounter - Alice Nazario - 01/25/2023 8:03 AM EST Patient called, her blood pressure has been elevated all weekend. She would ricki a call back to discuss starting blood pressure medications. She would like to speak with Dr. Griffith as well. Please advise. documented in this encounter Plan of Treatment Not on file documented as of this encounter Visit Diagnoses Not on filedocumented in this encounter Care Teams Accountant Certified Public Relationship Specialty Start Date End Date Madisyn Elliott MD PCP - General Internal Medicine 11/17/18 Adrienne Miller NP Nurse Practitioner Cardiology 03/13/20 Godwin Griffith MD Reimbursement Counselor Cardiovascular Disease 03/13/20 04/18/23 Alfonso Pedersen MD [address] [place] [address] [place] [address] Specialist Cardiovascular Disease 08/24/23 documented as of this encounter
--- OUTSIDE RECORDS SUMMARY | 2024-07-25 12:46 | XMS_ITS | Encounter Summary ---
Author Organization [facility] Address [facility] [place] [address] Care Team Providers Care Assistant Buyer Name Role Phone Madisyn Elliott MD Primary Care Provider Madisyn Benoit MD Unavailable Unavailable Godwin Griffith MD Unavailable Unavailable Adrienne Miller NP Unavailable [phone] Godwin Griffith MD Unavailable Unavailable Alfonso Pedersen MD Unavailable [phone] Encounter Details Date Type Department Care Team Description 07/31/2020 SCAN Medical Records [address] [place] [id number] Abstract, Provider Social History Tobacco Use Types [...] Date/Time Associated Diagnosis Comments OUTSIDE LAB Routine 07/31/2020 documented in this encounter Results * OUTSIDE LAB (07/31/2020) Provider Abstract LAB documented in this encounter Visit Diagnoses Not on filedocumented in this encounter Care Teams Assistant Buyer Relationship Specialty Start Date End Date Madisyn Elliott MD PCP - General Internal Medicine 11/17/18 Madisyn Elliott MD 01/12/18 02/10/21 Godwin Griffith MD Specialist Cardiovascular Disease 05/24/20 Adrienne Miller NP Nurse Practitioner Cardiology 03/13/20 Godwin Griffith MD Pharmacognosy Teacher Cardiovascular Disease 03/13/20 04/18/23 Alfonso Pedersen MD [address] [place] [address] [place] [address] Specialist Cardiovascular Disease 08/24/23 documented as of this encounter
--- OUTSIDE RECORDS SUMMARY | 2024-07-25 12:46 | XMS_ITS | Clinical Summary ---
Author Organization [facility] Address [address] [place] [address] Care Team Providers Care Equipment Service Technician Name Role Phone Madisyn Elliott MD Primary Care Provider Adrienne Sorensen NP Unavailable [phone] Alfonso Pedersen MD Unavailable [phone] Allergies Active Allergy Reactions Severity Noted Date Comments No Known Drug Allergies 06/12/2010 Medications Medication Sig Dispensed Refills Start Date End Date Status pantoprazole (PROTONIX) 40 MG tablet Take 40 mg by mouth daily. 0 12/26/2013 Active Ascorbic Acid (VITAMIN C) 500 MG Cap 500 mg daily. 0 07/04/2015 Active Loratadine (CLARITIN) 10 MG Cap Take 1 Cap by mouth daily as needed. 30 Cap 0 11/17/2018 Active diazepam (VALIUM) 5 MG tablet TAKE 1 TABLET BY MOUTH TWICE A DAY NEEDED FOR ANXIETY 50 Tab 0 02/06/2019 Active Kusp-Pgynw-JGS-Boswel cl-Vit D (Glucos Chondroit, Boswellia,) Tab Take by mouth 2 Times Daily. 0 Active fluticasone 50 MCG/ACT nasal spray 2 Sprays by Each Nare route daily. 0 Active Vitamin E 400 units Tab Take 1 Tablet by mouth daily. 0 Active LYSINE OR Take 500 mg by mouth daily. 0 Active amlodipine (NORVASC) 5 MG tablet Take 1 Tablet by mouth daily. 0 Active amoxicillin (AMOXIL) 500 MG tablet Take 1 Tablet by mouth. Taken prior to dental visits 0 Active aspirin 81 MG EC tablet Take 1 Tablet by mouth daily. 0 Active atorvastatin (LIPITOR) 80 MG tablet Take 1 Tablet by mouth daily. 0 Active duloxetine (CYMBALTA) 20 MG capsule Take 1 Capsule by mouth daily. 0 Active acetaminophen (TYLENOL) 500 MG tablet Take 1 Tablet by mouth every 6 hours as needed. 0 Active Cholecalciferol (Vitamin D3) 50 MCG (2000 UT) Tab Take 1 Tablet by mouth daily. 0 Active meloxicam (MOBIC) 7.5 MG tablet Take 1 Tablet by mouth daily. 0 Active lisinopril (PRINIVIL,ZESTRIL) 5 MG tablet Take 1 Tablet by mouth daily. 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 She was placed on Eliquis 5 mg twice daily for 6 months and has follow-up arranged with neurology. She had a Zio patch monitor which did not show any evidence of atrial fibrillation. She recently had a carotid duplex. Results not available for my review at the time of this office visit. We will let her know the results of the study when available. Hypertension 08/29/2021 Last Assessment & Plan: The patient has a history of arterial hypertension. The patient's blood pressure today was noted to be well controlled. We'll continue the current antihypertensive medication regimen. Dyspnea 07/31/2020 Last Assessment & Plan: We did discuss her dyspnea. This is similar to what she had before. Her EKG is unchanged. As you recall she had a cardiac catheterization last year which showed no significant disease. She will continue work on diet and exercising and her weight back down. Her echocardiogram did not show any significant abnormalities or changes to explain her dyspnea. We will continue to monitor. This has been stable if not improving as she is getting back to exercise. Aortic stenosis 12/26/2018 Overview: Mild - Moderate Last Assessment & Plan: The patient completed an echocardiogram in August 2022 that showed mild aortic stenosis, mild to moderate aortic insufficiency, and mild to moderate tricuspid valve insufficiency. The patient is currently asymptomatic from a cardiac standpoint. Will continue follow-up monitoring with a new echocardiogram to be done in August 2024. 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 Given her carotid artery stenosis, her LDL target is 70 or below. The patient is currently on atorvastatin 80 mg orally daily. We will order a new lipid panel to evaluate the patient's current lipid control and determine if any adjustment are needed in the lipid lowering therapy. Insomnia 07/06/2017 Vitamin D deficiency 07/06/2017 Osteopenia 04/08/2017 Esophageal reflux 12/29/2016 Elevated liver enzymes 12/29/2016 Multiple pulmonary nodules 09/14/2012 Resolved Problems Problem Noted Date Resolved Date Hypercalcemia 04/14/2018 11/17/2018 History of cellulitis 11/11/2016 11/17/2018 Immunizations Name Administration Dates Next Due Influenza vaccine high dose age 65 and over 11/24/2018,12/23/2017,12/22/2016,11/27 MMR (Ayhjnjn-Hktss-Hakedpc) 12/21/2013 Aznyxwb-Djffx-Tekxwqjz + 06/15/2005 Pmejc-Lomjr-Peufddjp + 11/27/2008 PPD-Negative Response(External) 12/21/2013,06/23 Pneumoccoccal(Adult) Polysac charide PPSV23 02/16/2014,02/27/2006 Quantiferon Tb Gold Neg 07/07/2016 Shingrix (Recombinant zoster vaccine) 12/11/2017 ,09/23/2017 Tdap 05/30/2014 Varicella Titre-Positive + 06/15/2005 Zostavax 01/08/2007 Family History Medical History Relation Name Comments CAD Father Dementia Mother Relation Name Status Comments Father Maternal Grandfather Maternal Grandmother Mother Paternal Grandfather Paternal Grandmother Social History Tobacco Use Types Packs/Day Years Used Date Smoking Tobacco: Former Cigarettes Q uit: 1963 Smokeless Tobacco: Never Tobacco Cessation:Counseling Given: Not Answered Comments:only smoked 1-2 cigs a week Alcohol Use Standard Drinks/Week Comments Not Currently [...] file Not on file Not on file Last Filed Vital Signs Vital Sign Reading Time Taken Comments Blood Pressure 120/70 12/10/2023 9:58 AM EDT Pulse 66 08/24/2023 2:37 PM EDT Temperature 36.6 ??C (97.9 ??F) 02/08/2019 9:12 AM ES T Respiratory Rate 12 02/16/2023 10:04 AM EST Oxygen Saturation 96% 08/24/2023 2:37 PM EDT Inhaled Oxygen Concentration - - Weight 64.9 kg (143 lb) 12/10/2023 9:58 AM EDT Height 160 cm (5' 3 ) 12/10/2023 9:58 AM EDT Body Mass Index 25.33 12/10/2023 9:58 AM EDT Plan of Treatment Health Maintenance Due Date Last Done Comments CHOLESTEROL SCREENING 1961 PNEUMOCOCCAL VACCINE (2 - PCV) 02/16/2015 02/16/2014 , 02/27/2006 MAMMOGRAM 08/16/2018 08/16/2017, 07/15 (External Completion), 08/12/2016, Additional history exists FALL RISK ASSESSMENT 05/12/2019 05/12/2018 DEPRESSION SCREEN 11/18/2019 11/17/2018, 05/12/2018 BONE DENSITY SCREENING 05/27/2020 05/27/2018 Covid-19 Vaccine ( - 2022-2 4 season) 2023 04/09/2020 BMI CHECK/ADVISE 03/15/2024 DTAP/TDAP/TD (2 - Td or Tdap) 05/30/2024 05/30/2014 INFLUENZA (Season Ended) 2024 019, 12/23/2017, 12/22/2016, Additional history exists SHINGLES VACCINE Completed 12/11/2017, 02/2018, 01/08/2007 Advance Directives For more information, please contact: [phone] Documents on File Type Date Recorded Patient Hebrew Professor Expl [facility] Health Care Proxy 11/22/2018 12:34 PM PROX Y Care Teams Equipment Service Technician Relationship Specialty Start Date End Date Madisyn Elliott MD PCP - General Internal Medicine 11/17/18 Adrienne Miller NP Nurse Practitioner Cardiology 03/13/20 Alfonso Pedersen MD [address] [place] [address] [place] [address] Specialist Cardiovascular Disease 08/24/23
--- OUTSIDE RECORDS SUMMARY | 2024-07-25 12:46 | XMS_ITS | Encounter Summary ---
Author Organization [facility] Address [facility] [place] [address] Care Team Providers Care Benefits Administrator Name Role Phone Madisyn Elliott MD Primary Care Provider Madisyn Benoit MD Unavailable Unavailable Godwin Griffith MD Unavailable Unavailable Adrienne Miller NP Unavailable [phone] Godwin Griffith MD Unavailable Unavailable Alfonso Pedersen MD Unavailable [phone] Encounter Details Date Type Department Care Team Description 04/24/2020 SCAN Medical Records [address] [place] [id number] Abstract, Provider Social History Tobacco Use Types [...] Date/Time Associated Diagnosis Comments OUTSIDE LAB Routine 04/24/2020 documented in this encounter Results * OUTSIDE LAB (04/24/2020) Provider Abstract LAB documented in this encounter Visit Diagnoses Not on filedocumented in this encounter Care Teams Benefits Administrator Relationship Specialty Start Date End Date Madisyn Elliott MD PCP - General Internal Medicine 11/17/18 Madisyn Elliott MD 01/12/18 02/10/21 Godwin Griffith MD Specialist Cardiovascular Disease 05/24/20 Adrienne Miller NP Nurse Practitioner Cardiology 03/13/20 Godwin Griffith MD Consulting Systems Engineer Cardiovascular Disease 03/13/20 04/18/23 Alfonso Pedersen MD [address] [place] [address] [place] [address] Specialist Cardiovascular Disease 08/24/23 documented as of this encounter
--- OUTSIDE RECORDS SUMMARY | 2024-07-25 12:46 | XMS_ITS | Encounter Summary ---
Author Organization [facility] Address [facility] [place] [address] Care Team Providers Care Hasher Machine Operator Name Role Phone Madisyn Elliott MD Primary Care Provider Adrienne Sorensen NP Unavailable [phone] Godwin Griffith MD Unavailable Unavailable Alfonso Pedersen MD Unavailable [phone] Encounter Details Date Type Department Care Team Description 05/14/2021 SCAN Medical Records [address] [place] [address] Abstract, Provider Social History Tobacco Use Types [...] Date/Time Associated Diagnosis Comments OUTSIDE LAB Routine 05/14/2021 documented in this encounter Results * OUTSIDE LAB (05/14/2021) Provider Abstract LAB documented in this encounter Visit Diagnoses Not on filedocumented in this encounter Care Teams Hasher Machine Operator Relationship Specialty Start Date End Date Madisyn Elliott MD PCP - General Internal Medicine 11/17/18 Adrienne Miller NP Nurse Practitioner Cardiology 03/13/20 Godwin Griffith MD Senior Web Applications Developer Cardiovascular Disease 03/13/20 04/18/23 Alfonso Pedersen MD [address] [place] [address] [place] [address] Specialist Cardiovascular Disease 08/24/23 documented as of this encounter
--- OUTSIDE RECORDS SUMMARY | 2024-07-25 12:46 | XMS_ITS | Encounter Summary ---
Author Organization [facility] Address [facility] [place] [address] Care Team Providers Care Measurer Machine Name Role Phone Madisyn Elliott MD Primary Care Provider Madisyn Benoit MD Unavailable Unavailable Godwin Griffith MD Unavailable Unavailable Adrienne Miller NP Unavailable Godwin Griffith MD Unavailable Unavailable Alfonso Pedersen MD Unavailable [phone] Encounter Details Date Type Department Care Team Description 11/22/2018 Orders Only Medical Records [address] [place] [address] Abstract, Provider Social History Tobacco Use Types [...] Name Priority Date/Time Associated Diagnosis Comments OUTSIDE MAMMO Routine 08/12/2016 OUTSIDE EKG Routine 02/25/2010 OUTSIDE COLONOSCOPY Routine 08/19/2009 OUTSIDE PAP SMEAR Routine 04/25/2009 documented in this encounter Results * OUTSIDE MAMMO (08/12/2016) Provider Abstract RADIOLOGY * OUTSIDE EKG (02/25/2010) Provider Abstract CARDIOLOGY * OUTSIDE COLONOSCOPY (08/19/2009) Provider Abstract RADIOLOGY * OUTSIDE PAP SMEAR (04/25/2009) Provider Abstract LAB documented in this encounter Visit Diagnoses Not on filedocumented in this encounter Care Teams Measurer Machine Relationship Specialty Start Date End Date Madisyn Elliott MD PCP - General Internal Medicine 11/17/18 Madisyn Elliott MD 01/12/18 02/10/21 Godwin Griffith MD Specialist Cardiovascular Disease 05/24/20 Adrienne Miller NP Nurse Practitioner Cardiology 03/13/20 Godwin Griffith MD Tinner Helper Cardiovascular Disease 03/13/20 04/18/23 Alfonso Pedersen MD [address] [place] [address] [place] [address] Specialist Cardiovascular Disease 08/24/23 documented as of this encounter
--- OUTSIDE RECORDS SUMMARY | 2024-07-25 12:46 | XMS_ITS | Encounter Summary ---
Author Organization [facility] Address [facility] [place] [address] Care Team Providers Care Coding Machine Operator Name Role Phone Madisyn Elliott MD Primary Care Provider Adrienne Sorensen NP Unavailable [phone] Godwin Griffith MD Unavailable Unavailable Alfonso Pedersen MD Unavailable [phone] Encounter Details Date Type Department Care Team Description 05/01/2021 SCAN Medical Records [address] [place] [address] Abstract, Provider Social History Tobacco Use Types [...] Date/Time Associated Diagnosis Comments OUTSIDE LAB Routine 05/01/2021 documented in this encounter Results * OUTSIDE LAB (05/01/2021) Provider Abstract LAB documented in this encounter Visit Diagnoses Not on filedocumented in this encounter Care Teams Coding Machine Operator Relationship Specialty Start Date End Date Madisyn Elliott MD PCP - General Internal Medicine 11/17/18 Adrienne Miller NP Nurse Practitioner Cardiology 03/13/20 Godwin Griffith MD Valve Repairer Cardiovascular Disease 03/13/20 04/18/23 Alfonso Pedersen MD [address] [place] [address] [place] [address] Specialist Cardiovascular Disease 08/24/23 documented as of this encounter
--- OUTSIDE RECORDS SUMMARY | 2024-07-25 12:46 | XMS_ITS | Encounter Summary ---
Author Organization [facility] Address [facility] [place] [address] Care Team Providers Care Signalman Name Role Phone Madisyn Elliott MD Primary Care Provider Adrienne Sorensen NP Unavailable [phone] Godwin Griffith MD Unavailable Unavailable Alfonso Pedersen MD Unavailable [phone] Encounter Details Date Type Department Care Team Description 03/31/2022 SCAN Medical Records [address] [place] [address] Abstract, Provider Social History Tobacco Use Types [...] suspected to have Coronavirus/COVID-19? No / Unsure 03/02/2022 8:17 AM EST documented as of this encounter Plan of Treatment Not on file documented as of this encounter Procedures Procedure Name Priority Date/Time Associated Diagnosis Comments OUTSIDE LAB Routine 03/31/2022 documented in this encounter Results * OUTSIDE LAB (03/31/2022) Provider Abstract LAB documented in this encounter Visit Diagnoses Not on filedocumented in this encounter Care Teams Signalman Relationship Specialty Start Date End Date Madisyn Elliott MD PCP - General Internal Medicine 11/17/18 Adrienne Miller NP Nurse Practitioner Cardiology 03/13/20 Godwin Griffith MD Corrugator Supervisor Cardiovascular Disease 03/13/20 04/18/23 Alfonso Pedersen MD [address] [place] [address] [place] [address] Specialist Cardiovascular Disease 08/24/23 documented as of this encounter
--- OUTSIDE RECORDS SUMMARY | 2024-07-25 12:46 | XMS_ITS | Encounter Summary ---
Author Organization [facility] Address [facility] [place] [address] Care Team Providers Care Manufacturing Cost Estimator Name Role Phone Madisyn Elliott MD Primary Care Provider Madisyn Benoit MD Unavailable Unavailable Godwin Griffith MD Unavailable Unavailable Adrienne Miller NP Unavailable [phone] Godwin Griffith MD Unavailable Unavailable Alfonso Pedersen MD Unavailable [phone] Encounter Details Date Type Department Care Team Description 03/19/2020 SCAN Medical Records [address] [place] [address] Abstract, Provider Social History Tobacco Use Types [...] Date/Time Associated Diagnosis Comments OUTSIDE LAB Routine 03/19/2020 OUTSIDE LAB Routine 03/19/2020 documented in this encounter Results * OUTSIDE LAB (03/19/2020) Provider Abstract LAB * OUTSIDE LAB (03/19/2020) Provider Abstract LAB documented in this encounter Visit Diagnoses Not on filedocumented in this encounter Care Teams Manufacturing Cost Estimator Relationship Specialty Start Date End Date Madisyn Elliott MD PCP - General Internal Medicine 11/17/18 Madisyn Elliott MD 01/12/18 02/10/21 Godwin Griffith MD Specialist Cardiovascular Disease 05/24/20 Adrienne Miller NP Nurse Practitioner Cardiology 03/13/20 Godwin Griffith MD Crm Specialist Cardiovascular Disease 03/13/20 04/18/23 Alfonso Pedersen MD [address] [place] [address] [place] [address] Specialist Cardiovascular Disease 08/24/23 documented as of this encounter
--- OUTSIDE RECORDS SUMMARY | 2024-07-25 12:46 | XMS_ITS | Encounter Summary ---
Author Organization [facility] Address [address] [place] [address] Care Team Providers Care Pushcart Peddler Name Role Phone Madisyn Elliott MD Primary Care Provider Adrienne Sorensen NP Unavailable [phone] Alfonso Pedersen MD Unavailable [phone] Reason for Visit * Reason Onset Date Comments APPOINTMENT 10/20/2023 REFERRAL 10/20/2023 Encounter Details Date Type Department Care Team Description 10/20/2023 Telephone Pulmonology - [address] [place] [address] Madisyn Elliott MD APPOINTMENT; REFERRAL Social History Tobacco Use Types Packs/Day Years Used Date Smoking Tobacco: Former Cigarettes Q uit: 1963 Smokeless Tobacco: Never Comments:only smoked 1-2 cig s a week Alcohol Use Standard Drinks/Week Comments [...] encounter Miscellaneous Notes * Telephone Encounter - Arturo Metz - 10/20/2023 2:14 PM EDT Referral received from [facility] for chronic cough. Called pt to schedule consult,pt declined she will call her PCP to have the refferal send to Dr. Patel in [facility]. Referral will be send to scanning. documented in this encounter Plan of Treatment Not on file documented as of this encounter Visit Diagnoses Not on filedocumented in this encounter Care Teams Pushcart Peddler Relationship Specialty Start Date End Date Madisyn Elliott MD PCP - General Internal Medicine 11/17/18 Adrienne Miller NP Nurse Practitioner Cardiology 03/13/20 Alfonso Pedersen MD [address] [place] [address] Dr [place]ira [place] [address] Specialist Cardiovascular Disease 08/24/23 documented as of this encounter
== END 2024-07-25 11:52 | disposition home or self-care (01) ==
LOC: HO.HPS 11:17
PROVIDERS: PCP Family Medicine; Visit Provider Hospitalist
DX: R05.3 Chronic cough (principal); T78.40XA Allergy, unspecified, initial encounter; R05.8 Other specified cough; J31.0 Chronic rhinitis; R91.1 Solitary pulmonary nodule; J45.991 Cough variant asthma
CPT/HCPCS: 99214; G2211

== ENCOUNTER → 2024-07-25 11:16 | Outpatient (BNVA) | payer MEDICARE, SELFPAY | PROVIDERS: PCP Family Medicine; Visit Provider Hospitalist | DX: J45.991 Cough variant asthma (principal); J31.0 Chronic rhinitis; R91.1 Solitary pulmonary nodule; R05.8 Other specified cough; R05.3 Chronic cough; T78.40XD Allergy, unspecified, subsequent encounter | CPT/HCPCS: 99212 ==